=== PATIENT | female | born 1940 | race Caucasian/White ===

== ENCOUNTER 2016-04-25 12:40 | Inpatient (IN) | payer BC, MEDICARE ==
[2016-04-25] MEDS ORDERED: Morphine INJ* 4 MG/ML 1 ML SYRINGE IV ONE ×2 (13:30→15:39)
[2016-04-25] MEDS: NS 0.9% 1000 ML* 1,000 ML IV SCH ×2 (13:53→17:12)
[2016-04-25] MEDS ORDERED: Morphine INJ* 10 MG/ML 1 ML SYRINGE IV ONE (14:06)
[2016-04-25] MEDS ORDERED: Midazolam* 1 MG/ML 2 ML VIAL (2 MG) ONE (16:29)
[2016-04-25] MEDS ORDERED: fentaNYL* 50 MCG/ML 2 ML VIAL (100 MCG VIAL) ONE ×3 (16:29→17:10)
--- NOTE | 2016-04-25 16:43 | RAD ---
INDICATION: Left hip dislocation COMPARISON: Similar radiograph dated February 27, 2016 TECHNIQUE: 3 views of the left hip were obtained. FINDINGS: The right hip prosthesis is anatomically aligned. The femoral head component of the left hip prosthesis is displaced superiorly and posteriorly relative to the acetabular component. There is no evidence of periprostatic fracture. Remaining visualized bones are intact and properly aligned. IMPRESSION: Displacement of the left hip prosthesis as described above.
[2016-04-25] MEDS ORDERED: HYDROmorphone PCA* 20 ML ONE (16:48)
[2016-04-25] MEDS ORDERED: PROCHLORPERAZINE INJ 5 MG/ML 2 ML VIAL IV PRN (16:55)
[2016-04-25] MEDS ORDERED: Ondansetron INJ* 2 MG/ML VIAL IV PRN (16:55)
[2016-04-25] MEDS ORDERED: DiMENhydriNATE IV* 50 MG/ML VIAL IV PUSH PRN (16:55)
[2016-04-25] MEDS ORDERED: oxyCODONE TAB* 5 MG TAB PO PRN (16:59)
[2016-04-25] MEDS ORDERED: Ketorolac INJ* 30 MG/ML 1 ML VIAL ONE (17:00)
[2016-04-25] MEDS ORDERED: Propofol* 10 MG/ML 20 ML BTL IV PUSH ONE (17:00)
[2016-04-25] MEDS ORDERED: HYDROmorphone PCA* 20 ML PCA SCH (17:00)
[2016-04-25] MEDS ORDERED: Ondansetron INJ* 2 MG/ML VIAL ONE (17:00)
[2016-04-25] MEDS ORDERED: Lidocaine 2% MPF* 2 ML VIAL ONE (17:00)
[2016-04-25] MEDS ORDERED: Succinylcholine* 20 MG/ML 10 ML VIAL ONE (17:00)
[2016-04-25] MEDS ORDERED: Dexamethasone IV* 4 MG/ML 1 ML (4 MG) ONE (17:00)
[2016-04-25] MEDS: fentaNYL* 50 MCG/ML 2 ML VIAL (100 MCG VIAL) IV PRN ×2 (17:11→17:25)
--- NOTE | 2016-04-25 17:24 | RAD ---
INDICATION: Dislocation of the left hip prosthesis COMPARISON: Same day radiograph that shows a dislocated left hip prosthesis TECHNIQUE: Single AP radiograph of the left hip was acquired in the operating room. FINDINGS: In the AP projection the femoral head prosthesis remains dislocated superiorly and laterally relative to the acetabulum. IMPRESSION: Persistent left hip prosthesis dislocation.
[2016-04-25] MEDS ORDERED: HYDROmorphone* 1 MG/ML 1 ML SYR ONE (17:29)
[2016-04-25] MEDS: HYDROmorphone* 1 MG/ML 1 ML SYR IV PRN ×2 (17:31→17:38)
[2016-04-25] MEDS ORDERED: Magnesium Hydroxide LIQ* 30 ML UDC PO PRN (18:30)
[2016-04-25 19:06] LABS: Hematocrit 41 % (35-47); Hemoglobin 13.7 g/dl (12.0-16.0); Mean Corpuscular HGB Conc 34 g/dl (31-36); Mean Corpuscular Hemoglobin 31 pg (27-31); Mean Corpuscular Volume 92 fL (80-97); Mean Platelet Volume 8 um3 (7.4-10.4); Red Blood Count 4.42 10^6/ul (4.0-5.4); Red Cell Distribution Width 13 % (10.5-15); White Blood Count 10.3 10^3/ul (3.5-10.8)
[2016-04-25] MEDS: Acetaminophen TAB* 325 MG PO SCH (19:15)
[2016-04-25 19:24] LABS: BUN/Creatinine Ratio 35.4 (8-20); C Reactive Protein 2.26 mg/L (< 5.00); Calcium 8.8 mg/dL (8.6-10.3); EGFR African American 114.9 (>60); EGFR Non-African American 89.3 (>60)
--- NOTE | 2016-04-25 20:01 | RAD ---
INDICATION: Hypertension COMPARISON: None. TECHNIQUE: Single AP portable view of the chest was obtained. FINDINGS: Image quality is compromised due to the relative inferiority of a portable chest x-ray. The heart and mediastinum exhibit normal size and contour. There is atherosclerotic calcification at the arch of the aorta. The lungs are grossly clear. There is no evidence of a large pleural effusion. Visualized bones are normal for the patient's age. IMPRESSION: No radiographic evidence for acute cardiopulmonary abnormality on this portable chest x-ray.
[2016-04-25 20:11] LABS: Erythrocyte Sed Rate 10 mm/Hr (0-40)
[2016-04-25] MEDS: Senna TAB PO SCH (20:33)
[2016-04-25] MEDS: Docusate CAP* 100 MG PO SCH (20:34)
[2016-04-25] MEDS: Ondansetron INJ* 2 MG/ML VIAL IV PRN (21:33)
[2016-04-25] MEDS: Atorvastatin* 10 MG TAB PO SCH (22:01)
[2016-04-25] MEDS: Heparin VIAL(*) 5000 UNITS/ML VIAL (FIVE THOUSAND) SUBCUT SCH (22:04)
--- NOTE | 2016-04-25 22:22 | RAD ---
INDICATION: Dislocated prosthetic left hip COMPARISON: Same day radiographs TECHNIQUE: Noncontrast CT examination of the left hip. Axial images were acquired and sagittal and coronal reformats were created and independently analyzed. FINDINGS: As was seen on the same day radiographs the femoral head prosthesis is dislocated posteriorly and superior relative to the acetabulum. The visualized bones are intact. There is no periprosthetic fracture. Grossly the surrounding soft tissues appear to be intact. IMPRESSION: Dislocated hip as described above without periprosthetic fracture.
[2016-04-26] MEDS: Acetaminophen TAB* 325 MG PO SCH ×3 (00:45→17:23)
--- NOTE | 2016-04-26 01:40 | CONS ---
CONSULTATION REPORT: DATE OF CONSULTATION: 04/25/16 ATTENDING PHYSICIAN: Skye Sue MD CHIEF COMPLAINT: Left hip pain. HISTORY OF PRESENT ILLNESS: Briefly, Stephanie is a 75-year-old female who had a left total hip replacement done by Dr. Alonso about 15 years ago. She has since done well. She started to notice left hip pain that began around 7 to 8 weeks ago. She was seen by Dr. Alonso, who said that everything looked fine. Today, she was bending over at around 10:30 this morning and she felt a pop, was unable to weight bear and presented to the ED and she was diagnosed with a dislocated periprosthetic hip. Orthopedics was then consulted. PAST MEDICAL HISTORY: Significant for high blood pressure, hyperlipidemia, and osteoarthritis. PAST SURGICAL HISTORY: Significant for right shoulder surgery, bilateral total hip replacements, bilateral cataract surgery as well as knee arthroscopy hysterectomy, and appendectomy. MEDICATIONS: Include: 1. Tylenol. 2. Celebrex. 3. Hydrochlorothiazide. 4. Tramadol. 5. Simvastatin. 6. Oxycodone. 7. Stool softener. 8. Metoprolol. ALLERGIES: HYDROCODONE and LATEX. FAMILY HISTORY: Mother is diagnosed with cancer 53 years ago. Father had a history of emphysema. SOCIAL HISTORY: She lives home with her . She used to be a home health aide. She denies tobacco and alcohol. REVIEW OF SYSTEMS: A 14-point review of systems was reviewed with the patient, significant for the above complaints. Otherwise, remainder of the systems is negative. PHYSICAL EXAMINATION: She is in no acute distress. She is well developed and well nourished. She is alert and oriented x3. Lungs are clear to auscultation bilaterally. Heart is regular rate. Examination of the left lower extremity demonstrates a well-healed incision. Her limb is internally rotated and shortened. She is able to dorsiflex and plantarflex her ankle. She is sensate to light touch about the first dorsal webspace, medial, lateral, dorsal and plantar foot, she has a 2+ PT pulse. Her calf is soft and nontender. DIAGNOSTIC STUDIES/LAB DATA: X-rays reviewed that demonstrate a dislocated left periprosthetic hip. There are no fractures that are evident. The stem appears to be well-fixed. ASSESSMENT AND PLAN: She has a dislocated hip. We will need to reduce this rather urgently. The ED is unable to do this due to sedation issues. Therefore , we will take her to the OR emergently to reduce her hip. Afterwards, she will be placed in a knee mobilizer and allowed to be weightbearing as tolerated. She will go home the same day. I will have her followup with my partner, Dr. Gaxiola, this week for possible revision options. The patient verbalized understanding. Risks and benefits of surgery were discussed at length including, but not limited to bleeding, infection, damage to nerve vessel , surrounding structures, the fracture as well as if the hip not able to go back in as well as risk of anesthesia. We will take care of this today. CC: PCP, Ruthann Linares MD* [id number]/[facility] #: [id number] RADHA
--- NOTE | 2016-04-26 02:46 | CONS ---
CONSULTATION REPORT: DATE OF CONSULT: 04/25/16 PRIMARY CARE PROVIDER: Dr. Linares. MY ATTENDING PHYSICIAN WHILE IN THE HOSPITAL: Dr. Donovan Viveros (report dictated by Perico Reed NP) REQUESTING PHYSICIAN FOR CONSULTATION: Skye Sue MD REASON FOR MEDICAL CONSULTATION: 1. Perioperative risk stratification. 2. Medical management of comorbid medical management. HISTORY OF PRESENT ILLNESS: I will refer you to Dr. Sue's H and P for further details. In short, Mrs. Almaguer is a 75-year-old female patient who has a history of hypertension, arthritis, and hyperlipidemia who this morning today was bending over to pick something up. She heard a pop on her left hip and there was immediate pain. She sat down. Anytime she moved, she was having a significant amount of pain on the left hip. She denied having any chest pain. She says that she has not been feeling ill of late. She denies having any URI symptoms. She denies any nausea, vomiting, or diarrhea. Importantly, she also states that she has not been having any chest pain. She denies having any chest pain when walking up a flight of stairs or having any shortness of breath while walking up a flight of stairs and says that she remains fairly active. She was taken to the OR later this afternoon as it was ultimately found that she dislocated her hip, there were attempts at relocation. Unfortunately, they were unsuccessful and it was felt that she would probably benefit from a left total hip revision. So, the patient was admitted on orthopedic services and we were asked to evaluate and consult. She says that she has not had any shortness of breath, denies any recent fevers or any nausea or vomiting. Denies having any diarrhea or any abdominal pain. She states that the pain in her hip has been responding to narcotics, but this has been short-lived and that he is ready for this hip to be replaced. Because of his comorbid medical conditions, the hospitalist service was asked to evaluate the patient in consult. PAST MEDICAL HISTORY: Significant for: 1. Hypertension. 2. Hyperlipidemia. 3. Arthritis. PAST SURGICAL HISTORY: 1. She has had bilateral total hip arthroplasties. 2. Shoulder arthroscopy on the right side. 3. Hysterectomy. 4. Cataract extraction. HOME MEDICATIONS: According to the list that she gave me includes: 1. Metoprolol 25 mg p.o. daily. 2. Percocet 1 tablet daily as needed. 3. Hydrochlorothiazide 12.5 mg daily. 4. Celebrex 200 mg daily. 5. Tylenol Arthritis 1 tablet p.o. daily. 6. Tramadol 50 mg p.o. b.i.d. 7. Stool softener 1 tablet daily. 8. Simvastatin 20 mg p.o. at bedtime. ALLERGIES TO MEDICATIONS: Include HYDROCODONE and LATEX. FAMILY HISTORY: Mother had cancer. Father had COPD, both . SOCIAL HISTORY: She does not smoke, does not drink. She is with children. Surrogate decision maker is her . REVIEW OF SYSTEMS: There is no documented fever. She denied having any significant weight change. There was no double vision. There is no new discharge. There is no rhinorrhea, no sore throat, no thyroid enlargement. No thyroid enlargement. She denies having any chest pain. There is no orthopnea. No nocturnal dyspnea. There is no abdominal pain. There is no nausea, no vomiting, no dysuria, no frequency, no seizure, no loss of consciousness, no pruritus, and no skin ulceration. Review of 14 systems completed, all others negative. PHYSICAL EXAMINATION: Vital Signs: Blood pressure 149/62, pulse 85, respirations 20, O2 sat 94% on 2 L, temperature 98.6. Generally at this time, Mrs. Almaguer is a 75- year-old female patient. She is sitting in the PACU bed. She does not appear to be in any acute distress. She is well nourished and well developed. HEENT: Head: Atraumatic, normocephalic. Eyes: EOMs are intact. Sclerae anicteric and not pale. Neck: Supple. Throat: Oral mucosa appears to be moist. No oropharyngeal erythema. Heart: Sounds S1, S2. Regular rate and rhythm. No murmurs, rubs, or gallops. Lungs: Clear to auscultation bilaterally. No wheezes, rales, or rhonchi. Abdomen: Soft, flat , nontender, bowel sounds present. Extremities: Pulses 2+ throughout. Distal CSM checks are intact to the left lower extremity. She is unable to move this extremity given that this location. Skin intact. DIAGNOSTIC STUDIES/LAB DATA: Labs are pending for today. Most recent labs from June of 2015 revealed WBC of 4.9, RBC of 4.69, hemoglobin 14.5, hematocrit of 44, platelet count of 206. Sodium 138, potassium 4.6, chloride 104, bicarbonate 30, BUN 20, creatinine 0.79, AST 17, ALT 14. She had an EKG obtained today, which revealed normal sinus rhythm with a left axis. No ST elevations or T-wave inversions were noted. It was reviewed to the previous EKG , it appears to be similar. She had a hip pelvis x-ray obtained, which showed displacement of the left hip prosthesis. Repeat imaging after relocation attempts revealed persistent left hip prosthesis dislocation. Old medical records reviewed. ASSESSMENT AND PLAN: Mrs. Almaguer is a 75-year-old female patient coming into the ER today admitted under orthopedic services for a dislocated left hip. Hospitalist service was asked to evaluate and consult. Recommendations at this point are: 1. Left hip dislocation. I would defer the management of this to Dr. Sue and her team in terms to the proposed surgery. I would like to get a chest x- ray. The EKG appears to be stable. She does appear to be fairly active. She has had no chest discomfort. Her RCRI is 0. My plan at this point will be to check a chest x- ray. If it is stable, then she can proceed to the operating room. She is at low risk. I would recommend continuing her beta-long. For the time being, I do recommend getting a CBC, BMP and an INR which have already been ordered by Dr. Sue for the night and I will continue to follow up her. 2. Hypertension. She is on hydrochlorothiazide and metoprolol. I am going to stop the hydrochlorothiazide in the perioperative setting and put her on Norvasc with the metoprolol. Blood pressures are in the 160 to 150 range. Most recently 149/62, but we will follow this while she is here. 3. Hyperlipidemia. Continue with statin therapy. 4. Arthritis. Defer to the primary team. 5. DVT prophylaxis. I will defer to the primary team, but I do see that they did order heparin, which is appropriate. 6. Fluid, electrolytes and nutrition. I would recommend a heart healthy diet. 7. Code status: Full code. TIME SPENT: Time spent on the consult was 60 minutes, greater than half the time was spent [id number] with the patient obtaining my history and physical, other half the time spent going over the plan of care with the patient and implementing plan of care. I did discuss the plan of care with my attending, Dr. Viveros; he is in agreement. PERICO REED NP CC: Dr. Skye Sue; Dr. Linares* [id number]/[facility] #: [id number] [facility]
[2016-04-26] MEDS: NS 0.9% 1000 ML* 1,000 ML IV SCH ×2 (04:10→20:50)
[2016-04-26] MEDS: Heparin VIAL(*) 5000 UNITS/ML VIAL (FIVE THOUSAND) SUBCUT SCH ×3 (06:23→21:24)
[2016-04-26 06:52] LABS: Hematocrit 39 % (35-47); Hemoglobin 13.1 g/dl (12.0-16.0); Mean Corpuscular HGB Conc 34 g/dl (31-36); Mean Corpuscular Hemoglobin 31 pg (27-31); Mean Corpuscular Volume 93 fL (80-97); Mean Platelet Volume 9 um3 (7.4-10.4); Red Cell Distribution Width 13 % (10.5-15); White Blood Count 9.8 10^3/ul (3.5-10.8)
[2016-04-26 07:06] LABS: BUN/Creatinine Ratio 38.3 (8-20); Calcium 8.7 mg/dL (8.6-10.3)
--- NOTE | 2016-04-26 09:59 | PN ---
Progress Note - Progress Note Note: POD#1 from attempted closed reduction of left hip. comfortable. pain controlled with WATER TECHNICIAN. no spasms. denies sob, fevers, chills. Temp Pulse Resp BP Pulse Ox 98.0 F 95 16 146/71 99 04/26/16 07:36 04/26/16 07:36 04/26/16 07:43 04/26/16 07:36 04/26/16 07:43 NAD. skin intact. able to dorsiflex/plantarflex ankle, flex/ext toes. SILT 1st dws, medial, lateral, dorsal, and plantarfoot. 2+ PT pulse. calf soft, nontender A/P left hip dislocated periprosthetic hip unable to close reduce discussed with Dr Alonso who will assume care tomorrow NPO after midnight analgesia, continue journeyman wireman q2 turns SCDs and heparin
[2016-04-26] MEDS: Docusate CAP* 100 MG PO SCH ×2 (10:11→20:27)
[2016-04-26] MEDS: amLODIPine TAB* 5 MG PO SCH (10:11)
[2016-04-26] MEDS: Metoprolol Succinate XL TAB* 25 MG PO SCH (10:11)
--- NOTE | 2016-04-26 15:19 | PN ---
Subjective Date of Service: 04/26/16 Interval History: Patient seen and examined at bedside. She reports adequate pain control with PACKAGE SORTER and reports using it q1 hour. She reports right sided chest tenderness and is able to palpate the area of concern. It only lasted a few seconds and "feels like indigestion." She also reports hiccoughs. She denies any other chest pain, neck pain, back pain, tingling/numbness, abdominal pain, n/v, dysuria. Family History: Unchanged from Admission Social History: Unchanged from Admission Past Medical History: Unchanged from Admission Objective Active Medications: Acetaminophen (Tylenol Tab*) 975 mg PO Q8H [facility] Last Admin: 04/26/16 10:11 Dose: 975 mg Amlodipine Besylate (Norvasc Tab*) 5 mg PO DAILY [facility] Last Admin: 04/26/16 10:11 Dose: 5 mg Atorvastatin Calcium (Lipitor*) 10 mg PO BEDTIME [facility] Last Admin: 04/25/16 22:01 Dose: 10 mg Docusate Sodium (Colace Cap*) 100 mg PO BID [facility] Last Admin: 04/26/16 10:11 Dose: 100 mg Heparin Sodium (Porcine) (Heparin Vial(*)) 5,000 units SUBCUT Q8HR [facility] Last Admin: 04/26/16 14:10 Dose: 5,000 units Sodium Chloride (Ns 0.9% 1000 Ml*) 1,000 mls @ 125 mls/hr IV PER RATE [facility] Last Admin: 04/26/16 04:10 Dose: 125 mls/hr Hydromorphone HCl (Dilaudid Saw Superintendent*) 20 mls @ 0 mls/hr PACKAGE SORTER .change Q24H [facility]; Per Protocol PRN Reason: Protocol Last Admin: 04/25/16 17:12 Dose: 0.2 mls/hr Magnesium Hydroxide (Milk Of Magnesia Liq*) 30 ml PO Q6H PRN PRN Reason: CONSTIPATION Metoprolol Succinate (Toprol Xl Tab*) 25 mg PO DAILY [facility] Last Admin: 04/26/16 10:11 Dose: 25 mg Ondansetron HCl (Zofran Inj*) 4 mg IV Q6H PRN PRN Reason: NAUSEA Last Admin: 04/25/16 21:33 Dose: 4 mg Oxycodone HCl (Roxycodone Tab*) 5 mg PO Q3H PRN PRN Reason: PAIN Oxycodone HCl (Roxycodone Tab*) 10 mg PO Q3H PRN PRN Reason: moderate pain Senna (Senokot Tab*) 2 tab PO BEDTIME [facility] Last Admin: 04/25/16 20:33 Dose: Not Given Vital Signs 04/25/16 04/25/16 04/25/16 18:43 19:12 19:33 Temperature 97.9 F 97.3 F Pulse Rate 78 80 Respiratory 16 16 16 Rate Blood Pressure 152/58 157/69 (mmHg) O2 Sat by Pulse 97 98 98 Oximetry 04/25/16 04/25/16 04/25/16 19:42 20:12 20:47 Temperature 97.6 F Pulse Rate 80 Respiratory 16 16 14 Rate Blood Pressure 151/60 (mmHg) O2 Sat by Pulse 98 99 98 Oximetry 04/25/16 04/25/16 04/25/16 21:12 22:00 22:12 Temperature Pulse Rate Respiratory 14 16 18 Rate Blood Pressure (mmHg) O2 Sat by Pulse 97 96 Oximetry 04/25/16 04/25/16 04/26/16 22:32 23:12 00:12 Temperature 97.6 F Pulse Rate 93 Respiratory 18 16 16 Rate Blood Pressure (mmHg) O2 Sat by Pulse 99 99 98 Oximetry 04/26/16 04/26/16 04/26/16 00:18 02:12 03:47 Temperature 97.5 F 97.8 F Pulse Rate 91 99 Respiratory 16 16 16 Rate Blood Pressure 152/72 115/87 (mmHg) O2 Sat by Pulse 100 99 99 Oximetry 04/26/16 04/26/16 04/26/16 04:00 06:00 06:30 Temperature Pulse Rate Respiratory 16 18 18 Rate Blood Pressure (mmHg) O2 Sat by Pulse 97 97 97 Oximetry 04/26/16 04/26/16 04/26/16 07:36 07:43 10:00 Temperature 98.0 F Pulse Rate 95 Respiratory 16 16 16 Rate Blood Pressure 146/71 (mmHg) O2 Sat by Pulse 99 99 99 Oximetry 04/26/16 04/26/16 04/26/16 12:00 12:09 14:00 Temperature 98.1 F Pulse Rate 82 Respiratory 16 16 16 Rate Blood Pressure 146/56 (mmHg) O2 Sat by Pulse 97 95 97 Oximetry Oxygen Devices in Use Now: None Appearance: Female patient, lying in bed, pleasant, in NAD Eyes: PERRLA Ears/Nose/Mouth/Throat: Clear Oropharnyx, Mucous Membranes Moist Neck: NL Appearance and Movements; NL JVP Respiratory: Symmetrical Chest Expansion and Respiratory Effort, Clear to Auscultation Cardiovascular: NL Sounds; No Murmurs; No JVD, RRR Abdominal: NL Sounds; No Tenderness; No Distention Extremities: No Edema Skin: No Rash or Ulcers Neurological: Alert and Oriented x 3 Lines/Tubes/Other Access: Clean, Dry and Intact Peripheral IV Nutrition: Taking PO's Result Diagrams: 04/26/16 06:17 04/26/16 06:17 Assess/Plan/Problems-Billing Assessment: Ms. Almaguer is a 75 yo female with a PMH of HTN, HLD, and OA who was admitted for left hip dislocation. - Patient Problems (1) Dislocation of left hip Code(s): S73.005A - UNSPECIFIED DISLOCATION OF LEFT HIP, INITIAL ENCOUNTER Comment: Management per ortho Pain management Plan for OR tomorrow (2) Chest wall pain Code(s): R07.89 - OTHER CHEST PAIN Comment: Suspect pulled muscle/costchondritis; area of complaint is tender to palpation and presentation is not consistent with cardiac pain Check EKG Continue to monitor (3) HTN (hypertension) Code(s): I10 - ESSENTIAL (PRIMARY) HYPERTENSION Comment: Borderline control. Continue amlodipine and metoprolol. Pain management (4) HLD (hyperlipidemia) Code(s): E78.5 - HYPERLIPIDEMIA, UNSPECIFIED Comment: Continue statin. (5) Arthritis Code(s): M19.90 - UNSPECIFIED OSTEOARTHRITIS, UNSPECIFIED SITE Comment: Per ortho; continue PRN analgesia and scheduled Tylenol. (6) DVT prophylaxis Comment: SQ heparin Status and Disposition: Inpatient admission. Disposition per ortho.
[2016-04-26] MEDS ORDERED: hydrALAZINE IV* 20 MG/ML VIAL IV SLOW PU PRN (16:46)
[2016-04-26] MEDS: Atorvastatin* 10 MG TAB PO SCH (20:27)
[2016-04-26] MEDS: Senna TAB PO SCH (20:27)
--- NOTE | 2016-04-26 21:28 | OP ---
DATE OF OPERATION: 04/25/16 - ROOM #341 DATE OF : 44 SURGEON: Skye Sue MD FAX MACHINE REPAIRER: No contact center assistant was available. ANESTHESIA: General, with MAC PRE-OP DIAGNOSIS: Left periprosthetic hip dislocation. POST-OP DIAGNOSIS: Left periprosthetic hip dislocation. OPERATIVE PROCEDURE: Attempted closed reduction of left total hip. ANESTHESIA: General. COMPLICATIONS: Unable to get the hip back in place. POSTOP DISPOSITION: Stable. INDICATIONS: Stephanie Almaguer is a 75-year-old female who had a previous total hip replacement done by Dr. Alonso a number of years ago. She has been having pain in her hip for the last 8 to 10 weeks. She bent over earlier today and felt the hip come out. She was unable to weight bear. She was found down for about 1 hour and then transferred to the ER where she was diagnosed with the hip dislocation. After discussion of risks and benefits of surgery, we elected to proceed with closed reduction. I did state that if she did not close, then she may need further surgery and may need an open reduction internal fixation. She has elected to proceed with surgery. DESCRIPTION OF PROCEDURE: The patient was greeted in the preoperative area by the attending surgeon. The correct extremity was marked and consent was confirmed. The patient was brought back to the operating suite where she was placed in the supine position on the operating table. She then underwent general anesthesia and monitored anesthesia care, which she tolerated without difficulty, after which, when the patient was completely asleep, surgeon stepped on top of the stretcher and with tension, pulled against her pelvis and the hip was reduced and the palpable clunk was felt that, as the leg was mobilized, it was found that it was not in fact located. A second reduction was attempted at that point. Again, it was not able to be relocated. The decision was made to abort the procedure and tell the family that she may need a bigger surgery. She was then awoken from anesthesia, transferred to the PACU in stable condition. POSTOPERATIVE PLAN: She will be on bed rest. She will be nonweightbearing. She will be given a PPI pump for pain control and I will talk to Dr. Alonso about management. [id number]/[facility] #: [id number] [facility]
[2016-04-27] MEDS: Acetaminophen TAB* 325 MG PO SCH ×3 (01:27→16:15)
[2016-04-27] MEDS: NS 0.9% 1000 ML* 1,000 ML IV SCH ×2 (04:55→18:05)
[2016-04-27] MEDS: Heparin VIAL(*) 5000 UNITS/ML VIAL (FIVE THOUSAND) SUBCUT SCH ×3 (05:06→22:02)
[2016-04-27] MEDS: Docusate CAP* 100 MG PO SCH ×2 (07:45→20:54)
[2016-04-27] MEDS: amLODIPine TAB* 5 MG PO SCH (08:06)
[2016-04-27] MEDS: Metoprolol Succinate XL TAB* 25 MG PO SCH (08:13)
--- NOTE | 2016-04-27 10:09 | PN ---
Subjective Date of Service: 04/27/16 Interval History: Patient seen and examined at bedside. She is awaiting surgery. 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 She feels better now. Denies CP, SOB, abd pain, n/v. No acute concerns. Family at bedside. Family History: Unchanged from Admission Social History: Unchanged from Admission Past Medical History: Unchanged from Admission Objective Active Medications: Acetaminophen (Tylenol Tab*) 975 mg PO Q8H [facility] Last Admin: 04/27/16 07:45 Dose: Not Given Amlodipine Besylate (Norvasc Tab*) 5 mg PO DAILY [facility] Last Admin: 04/27/16 08:06 Dose: Not Given Atorvastatin Calcium (Lipitor*) 10 mg PO BEDTIME [facility] Last Admin: 04/26/16 20:27 Dose: 10 mg Docusate Sodium (Colace Cap*) 100 mg PO BID [facility] Last Admin: 04/27/16 07:45 Dose: Not Given Heparin Sodium (Porcine) (Heparin Vial(*)) 5,000 units SUBCUT Q8HR [facility] Last Admin: 04/27/16 05:06 Dose: Not Given Hydralazine HCl (Apresoline Iv*) 5 mg IV SLOW PU Q6H PRN PRN Reason: BLOOD PRESSURE Sodium Chloride (Ns 0.9% 1000 Ml*) 1,000 mls @ 125 mls/hr IV PER RATE [facility] Last Admin: 04/27/16 04:55 Dose: 125 mls/hr Hydromorphone HCl (Dilaudid Cloud Engagement Partner*) 20 mls @ 0 mls/hr [employer]A DEVELOPER .change Q24H [facility]; Per Protocol PRN Reason: Protocol Last Admin: 04/25/16 17:12 Dose: 0.2 mls/hr Magnesium Hydroxide (Milk Of Magnesia Liq*) 30 ml PO Q6H PRN PRN Reason: CONSTIPATION Metoprolol Succinate (Toprol Xl Tab*) 25 mg PO DAILY [facility] Last Admin: 04/27/16 08:13 Dose: 25 mg Ondansetron HCl (Zofran Inj*) 4 mg IV Q6H PRN PRN Reason: NAUSEA Last Admin: 04/25/16 21:33 Dose: 4 mg Oxycodone HCl (Roxycodone Tab*) 5 mg PO Q3H PRN PRN Reason: PAIN Oxycodone HCl (Roxycodone Tab*) 10 mg PO Q3H PRN PRN Reason: moderate pain Senna (Senokot Tab*) 2 tab PO BEDTIME [facility] Last Admin: 04/26/16 20:27 Dose: 2 tab Vital Signs 04/26/16 04/26/16 04/26/16 12:00 12:09 14:00 Temperature 98.1 F Pulse Rate 82 Respiratory 16 16 16 Rate Blood Pressure 146/56 (mmHg) O2 Sat by Pulse 97 95 97 Oximetry 04/26/16 04/26/16 04/26/16 15:47 16:00 16:21 Temperature 98.0 F Pulse Rate 89 Respiratory 16 16 Rate Blood Pressure 162/68 (mmHg) O2 Sat by Pulse 98 95 95 Oximetry 04/26/16 04/26/16 04/26/16 18:00 18:53 19:08 Temperature 97.8 F Pulse Rate 89 86 Respiratory 16 16 Rate Blood Pressure 143/57 (mmHg) O2 Sat by Pulse 99 98 Oximetry 04/26/16 04/26/16 04/26/16 20:00 20:15 22:00 Temperature Pulse Rate Respiratory 16 18 18 Rate Blood Pressure (mmHg) O2 Sat by Pulse 96 99 Oximetry 04/26/16 04/27/16 04/27/16 23:39 00:00 02:00 Temperature 98.0 F Pulse Rate 85 Respiratory 16 18 18 Rate Blood Pressure 138/60 (mmHg) O2 Sat by Pulse 98 99 98 Oximetry 04/27/16 04/27/16 04/27/16 03:24 04:00 06:00 Temperature 98.4 F Pulse Rate 79 Respiratory 16 18 18 Rate Blood Pressure 138/59 (mmHg) O2 Sat by Pulse 98 98 99 Oximetry 04/27/16 04/27/16 07:26 07:52 Temperature 97.7 F Pulse Rate 88 Respiratory 16 16 Rate Blood Pressure 156/70 (mmHg) O2 Sat by Pulse 100 97 Oximetry Oxygen Devices in Use Now: None Appearance: Female patient, sitting up in bed, in NAD Eyes: PERRLA Ears/Nose/Mouth/Throat: Mucous Membranes Moist Neck: NL Appearance and Movements; NL JVP Respiratory: Symmetrical Chest Expansion and Respiratory Effort, Clear to Auscultation Cardiovascular: NL Sounds; No Murmurs; No JVD, RRR Abdominal: NL Sounds; No Tenderness; No Distention Extremities: No Edema - distal sensation and movement intact, brisk cap refill Skin: No Rash or Ulcers Neurological: Alert and Oriented x 3 Lines/Tubes/Other Access: Clean, Dry and Intact Peripheral IV Result Diagrams: 04/26/16 06:17 04/26/16 06:17 Assess/Plan/Problems-Billing Assessment: Ms. Almaguer is a 75 yo female with a PMH of HTN, HLD, and OA who was admitted for left hip dislocation. - Patient Problems (1) Dislocation of left hip Code(s): S73.005A - UNSPECIFIED DISLOCATION OF LEFT HIP, INITIAL ENCOUNTER Comment: Management per ortho, surgery today Pain management (2) Chest wall pain Code(s): R07.89 - OTHER CHEST PAIN Comment: Suspect pulled muscle/costchondritis; area of complaint was tender to palpation and is now no longer there EKG shows NSR and no significant changes (3) HTN (hypertension) Code(s): I10 - ESSENTIAL (PRIMARY) HYPERTENSION Comment: Borderline control. Continue amlodipine and metoprolol. PRN hydralazine Pain management (4) HLD (hyperlipidemia) Code(s): E78.5 - HYPERLIPIDEMIA, UNSPECIFIED Comment: Continue statin. (5) Arthritis Code(s): M19.90 - UNSPECIFIED OSTEOARTHRITIS, UNSPECIFIED SITE Comment: Per ortho; continue PRN analgesia and scheduled Tylenol. (6) DVT prophylaxis Comment: On hold for surgery; management per ortho Status and Disposition: Inpatient admission. Disposition per ortho.
[2016-04-27] MEDS ORDERED: HYDROmorphone* 1 MG/ML 1 ML SYR ONE (11:11)
[2016-04-27] MEDS ORDERED: Ondansetron INJ* 2 MG/ML VIAL ONE ×2 (11:20→13:27)
[2016-04-27] MEDS: Ondansetron INJ* 2 MG/ML VIAL IV PRN (11:21)
[2016-04-27] MEDS ORDERED: fentaNYL* 50 MCG/ML 2 ML VIAL (100 MCG VIAL) ONE (11:47)
[2016-04-27] MEDS ORDERED: ceFAZolin 2 GM PREMIX(*) 2 GM/50 ML BAG IVPB ONE (12:20)
[2016-04-27] MEDS ORDERED: Lidocaine 2% MPF* 2 ML VIAL ONE (13:27)
[2016-04-27] MEDS ORDERED: Propofol* 10 MG/ML 20 ML BTL IV PUSH ONE (13:27)
[2016-04-27] MEDS ORDERED: Succinylcholine* 20 MG/ML 10 ML VIAL ONE (13:27)
[2016-04-27] MEDS ORDERED: Dexamethasone IV* 4 MG/ML 1 ML (4 MG) ONE (13:27)
--- NOTE | 2016-04-27 14:12 | ED ---
Aly Gonsalves Adam, scribed for Reyes Infante MD on 04/25/16 at 1330 . Lower Extremity - HPI Summary HPI Summary: A 75 y/o female presents to the ED BIBA for left hip pain. Patient states that she sat down and felt a significant pop with sudden onset of pain. She denies falling or loss of consciousness. She rates the pain as 10/10 and is unable to bear weight. Patient had a hip replacement 15 years ago but has had no complications with the surgery. PMHx is positive for HTN and hyperlipidemia. - History of Current Complaint Chief Complaint: EDHipPelvisInjury Stated Complaint: LT HIP PROBLEM Time Seen by Provider: 04/25/16 13:05 Hx Obtained From: Patient Onset of Pain: Immediate Onset/Duration: Hours - 3 hours Severity Initially: Severe Severity Currently: Severe Pain Intensity: 10 Pain Scale Used: 0-10 Numeric Timing: Constant Location: Is Discrete @ - Left lateral hip Character Of Pain: Aching, Throbbing Aggravating Factor(s): Standing, Ambulation, Movement, Weight Bearing Alleviating Factor(s): Nothing Able to Bear Weight: No - Allergies/Home Medications Allergies/Adverse Reactions: Allergies Allergy/AdvReac Type Severity Reaction Status Date / Time Hydrocodone Allergy Intermediate Vomiting Verified 02/28/14 11:08 Latex Allergy Intermediate Swelling Verified 02/28/14 11:08 PMH/Surg Hx/FS Hx/Imm Hx Endocrine/Hematology History: Denies: Hx Diabetes Cardiovascular History: Reports: Hx Hypertension - ON MEDS Denies: Hx Pacemaker/ICD, Other Cardiovascular Problems/Disorders History: Denies: Hx Renal Disease, Other Problems/Disorders Musculoskeletal History: Reports: Hx Arthritis - OSTEOARTHRITIS Denies: Other Musculoskeletal History Sensory History: Reports: Hx Cataracts, Hx Contacts or Glasses - READING Denies: Hx Hearing Aid Opthamlomology History: Reports: Hx Cataracts, Hx Contacts or Glasses - READING Psychiatric History: Denies: Hx Panic Disorder - Surgical History Surgery Procedure, Year, and Place: ROTATOR CUFF RIGHT, 1999, [facility] [place]. RIGHT HIP REPLACEMENT, 2000, [facility] [place]. LEFT HIP REPLACEMENT 2004, [facility] [place]. HYSTERECTOMY, , [facility] [place]. CATARACTS BILAT. 2011, [facility] [place] Hx Anesthesia Reactions: No Infectious Disease History: No Infectious Disease History: Denies: Traveled Outside the [place] in Last 30 Days - Family History Known Family History: Negative: Other - Negative anasthesia reaction - Social History Alcohol Use: Rare Alcohol Amount: 1-2 ON OCCASION Substance Use Type: Reports: None Smoking Status (MU): Never Smoked Tobacco Review of Systems Constitutional: Negative Negative: Fever, Chills Eyes: Negative Negative: Erythema ENT: Negative Negative: Sore Throat Cardiovascular: Negative Negative: Chest Pain Respiratory: Negative Negative: Shortness Of Breath, Cough Gastrointestinal: Negative Negative: Abdominal Pain, Vomiting, Nausea Genitourinary: Negative Negative: dysuria, hematuria Positive: Arthralgia - Left lateral hip pain. Negative: Edema Skin: Negative Negative: Rash Neurological: Negative, Other - Negative: Dizziness Psychological: Normal All Other Systems Reviewed And Are Negative: Yes Physical Exam - Summary Physical Exam Summary: Constitutional: Well-developed, Well-nourished, Alert, Cooperative Skin: Warm, Dry HENT: Normocephalic; No Racoons eyes; No battles sign; No abrasion; No contusion ; No maxilla facial tenderness or instability; Dentition are smooth; No dental trauma; No trismus Eyes: EOM normal, PERRL Neck: Trachea is midline. No stridor; No JVD; No step off; No posterior cervical spine tenderness Cardio: Rhythm regular, rate normal Heart sounds normal; Intact distal pulses; The pedal pulses are 2+ and symmetric. Radial pulses are 2+ and symmetric. Pulmonary/Chest wall: Effort normal; Breath sounds normal; Equal chest rise; No flail segment; No rib tenderness; No sternal tenderness Abd: Soft, Appearance normal. No distension; No tenderness; No palpable pulsatile mass; No Cullens sign; No Grace-Turners sign Musculoskeletal: Tenderness at left lateral hip. no tenderness in ankles, shoulders, elbows and knees; No joint swelling; No vertebral body tenderness; No paraspinal tenderness; No step off or deformity of the spine; Neuro: Alert, Oriented x3, Strength 5/5 all extremities. Psych: Mood and affect Normal Vital Signs On Initial Exam: Initial Vitals Temp Pulse Resp BP Pulse Ox 98.1 F 62 18 136/56 100 04/25/16 13:03 04/25/16 13:03 04/25/16 13:03 04/25/16 13:03 04/25/16 13:03 Diagnostics - Vital Signs Vital Signs Temp Pulse Resp BP Pulse Ox 04/25/16 13:03 98.1 F 62 18 136/56 100 - Laboratory Lab Statement: Any lab studies that have been ordered have been reviewed, and results considered in the medical decision making process. - Radiology Hip/Pelvis xray Xray Interpretation: Positive (See Comments) - Left hip dislocation Radiology Interpretation Completed By: ED Physician Lower Extremity Course/Dx - Diagnoses Provider Diagnoses: Hip dislocation, left - Physician Notifications Discussed Care of Patient With: Dr. Sue (Ortho, 15:20) - Will take patient to surgery under sedation Discharge - Discharge Plan Condition: Stable Disposition: ADMITTED TO [facility] The documentation as recorded by the Aly collado Adam accurately reflects the service I personally performed and the decisions made by , Reyes Infante MD.
[2016-04-27] MEDS: Atorvastatin* 10 MG TAB PO SCH (20:54)
[2016-04-27] MEDS: Senna TAB PO SCH (20:54)
[2016-04-28] MEDS: Acetaminophen TAB* 325 MG PO SCH ×3 (00:54→16:28)
--- NOTE | 2016-04-28 02:03 | OP ---
DATE OF OPERATION: 04/27/16 - ROOM #341 DATE OF : 44 - AGE: 75 SURGEON: Dr. Alonso. AGRICULTURAL SCIENTIST: HALIE Heredia ANESTHESIOLOGIST: Dr. Sharri Richardson. ANESTHESIA: General endotracheal tube. PRE-OP DIAGNOSIS: Dislocated left total hip replacement. POST-OP DIAGNOSIS: Dislocated left total hip replacement. OPERATIVE PROCEDURE: Close manipulative reduction of the left total hip replacement under fluoroscopic control. COMPLICATIONS: There were no complications. DRAINS: There were no drains. ESTIMATED BLOOD LOSS: No blood loss. CONDITION: Stable to the recovery room. INDICATIONS: Dislocated hip replacement. DESCRIPTION OF PROCEDURE: The patient was brought to the operating room and placed on a fluoroscopic type table in the supine position after the administration of general anesthetic and we did our universal protocol time-out confirming Stephanie Almaguer and the plan for close reduction of her left hip. We all agreed. The left lower extremity was placed in internal rotation and the knee was placed on longitudinal traction and tractions that went towards the sealing to encourage the femoral head that was displaced posteriorly and superiorly to come once again anteriorly and distally. Once this position was obtained, then the hip was extended and the leg was externally rotated and it was at this point that several clunks were felt and the hip was in position on fluoroscopic control. I then maneuvered the hip into 70 to 80 degrees of flexion with external rotation and it seemed stable there and I did not internally rotate the hip but put it back into extension with external rotation of the leg and it seemed stable without having to keep on to force on the leg. The patient was carefully maneuvered into the hospital bed. We put her into an abduction pillow and I will plan to keep her in the abduction pillow over night and then make a decision regarding more mobilization on 04/28/16. Procedure well tolerated. [id number]/[facility] #: [id number] MTDReena
[2016-04-28] MEDS: NS 0.9% 1000 ML* 1,000 ML IV SCH (02:41)
[2016-04-28] MEDS: Heparin VIAL(*) 5000 UNITS/ML VIAL (FIVE THOUSAND) SUBCUT SCH ×3 (05:48→21:08)
[2016-04-28] MEDS: amLODIPine TAB* 5 MG PO SCH (08:30)
[2016-04-28] MEDS: Docusate CAP* 100 MG PO SCH ×2 (08:30→21:08)
[2016-04-28] MEDS: Metoprolol Succinate XL TAB* 25 MG PO SCH (08:30)
[2016-04-28] MEDS: oxyCODONE TAB* 5 MG TAB PO PRN ×3 (08:30→21:06)
--- NOTE | 2016-04-28 08:55 | RAD ---
INDICATION: Left hip prosthesis dislocation, closed reduction. COMPARISON: Comparison is made with a prior x-ray and CT study of the left hip from April 25, 2016. TECHNIQUE: 9 of intermitted fluoroscopic were provided and AP views of the left hip were obtained. FINDINGS: The patient is status post total left hip replacement surgery. The bones and prostheses are in normal alignment. There has been interval reduction of the previously noted posterior dislocation of the femoral head prostheses. IMPRESSION: INTRAOPERATIVE CONTROL FILMS. CPT II Codes: 6045F
--- NOTE | 2016-04-28 12:56 | PN ---
Subjective Date of Service: 04/28/16 Interval History: Patient seen and examined at bedside. She is OOB to chair and reports "feeling good." She reports good pain control, denies fever/chills, CP, SOB, abd pain, n/ v. Tolerating PO intake. No nursing concerns expressed. Family History: Unchanged from Admission Social History: Unchanged from Admission Past Medical History: Unchanged from Admission Objective Active Medications: Acetaminophen (Tylenol Tab*) 975 mg PO Q8H [facility] Last Admin: 04/28/16 08:30 Dose: 975 mg Amlodipine Besylate (Norvasc Tab*) 5 mg PO DAILY [facility] Last Admin: 04/28/16 08:30 Dose: 5 mg Atorvastatin Calcium (Lipitor*) 10 mg PO BEDTIME [facility] Last Admin: 04/27/16 20:54 Dose: 10 mg Docusate Sodium (Colace Cap*) 100 mg PO BID [facility] Last Admin: 04/28/16 08:30 Dose: 100 mg Heparin Sodium (Porcine) (Heparin Vial(*)) 5,000 units SUBCUT Q8HR [facility] Last Admin: 04/28/16 05:48 Dose: 5,000 units Hydralazine HCl (Apresoline Iv*) 5 mg IV SLOW PU Q6H PRN PRN Reason: BLOOD PRESSURE Magnesium Hydroxide (Milk Of Magnesia Liq*) 30 ml PO Q6H PRN PRN Reason: CONSTIPATION Metoprolol Succinate (Toprol Xl Tab*) 25 mg PO DAILY [facility] Last Admin: 04/28/16 08:30 Dose: 25 mg Ondansetron HCl (Zofran Inj*) 4 mg IV Q6H PRN PRN Reason: NAUSEA Last Admin: 04/27/16 11:21 Dose: 4 mg Oxycodone HCl (Roxycodone Tab*) 5 mg PO Q3H PRN PRN Reason: PAIN Oxycodone HCl (Roxycodone Tab*) 10 mg PO Q3H PRN PRN Reason: moderate pain Last Admin: 04/28/16 08:30 Dose: 10 mg Senna (Senokot Tab*) 2 tab PO BEDTIME [facility] Last Admin: 04/27/16 20:54 Dose: 2 tab Vital Signs 04/27/16 04/27/16 04/27/16 13:30 13:35 13:40 Temperature 99.1 F Pulse Rate 98 94 91 Respiratory 18 18 18 Rate Blood Pressure 154/76 155/67 140/75 (mmHg) O2 Sat by Pulse 97 97 97 Oximetry 04/27/16 04/27/16 04/27/16 13:45 14:00 14:14 Temperature Pulse Rate 93 94 88 Respiratory 18 18 18 Rate Blood Pressure 145/69 144/67 138/78 (mmHg) O2 Sat by Pulse 97 97 98 Oximetry 04/27/16 04/27/16 04/27/16 14:30 15:04 15:51 Temperature 97.9 F 98.7 F Pulse Rate 90 86 91 Respiratory 18 20 16 Rate Blood Pressure 134/93 152/71 151/65 (mmHg) O2 Sat by Pulse 98 97 94 Oximetry 04/27/16 04/27/16 04/27/16 16:00 16:54 18:00 Temperature 98.3 F Pulse Rate 88 Respiratory 16 20 16 Rate Blood Pressure 147/59 (mmHg) O2 Sat by Pulse 96 93 98 Oximetry 04/27/16 04/27/16 04/27/16 18:40 18:47 19:45 Temperature 98.2 F 97.3 F Pulse Rate 92 95 Respiratory 16 16 18 Rate Blood Pressure 139/56 141/53 (mmHg) O2 Sat by Pulse 96 96 99 Oximetry 04/27/16 04/27/16 04/27/16 20:00 22:00 23:26 Temperature 97.7 F Pulse Rate 81 Respiratory 18 18 16 Rate Blood Pressure 141/62 (mmHg) O2 Sat by Pulse 98 98 100 Oximetry 04/28/16 04/28/16 04/28/16 00:00 01:07 02:00 Temperature Pulse Rate Respiratory 18 18 Rate Blood Pressure (mmHg) O2 Sat by Pulse 98 97 98 Oximetry 04/28/16 04/28/16 04/28/16 03:28 04:00 05:44 Temperature 97.6 F Pulse Rate 76 Respiratory 16 18 18 Rate Blood Pressure 130/66 (mmHg) O2 Sat by Pulse 99 99 98 Oximetry 04/28/16 04/28/16 04/28/16 06:50 07:38 08:20 Temperature 98.1 F Pulse Rate 84 Respiratory 18 17 Rate Blood Pressure 171/75 (mmHg) O2 Sat by Pulse 100 99 98 Oximetry 04/28/16 08:30 Temperature Pulse Rate Respiratory 16 Rate Blood Pressure (mmHg) O2 Sat by Pulse Oximetry Oxygen Devices in Use Now: None Appearance: Female patient, OOB to chair, in NAD Eyes: PERRLA Ears/Nose/Mouth/Throat: Clear Oropharnyx, Mucous Membranes Moist Neck: NL Appearance and Movements; NL JVP Respiratory: Symmetrical Chest Expansion and Respiratory Effort, Clear to Auscultation Cardiovascular: NL Sounds; No Murmurs; No JVD, RRR Abdominal: NL Sounds; No Tenderness; No Distention Extremities: No Edema Skin: No Rash or Ulcers Neurological: Alert and Oriented x 3 Lines/Tubes/Other Access: Clean, Dry and Intact Peripheral IV Nutrition: Taking PO's Result Diagrams: 04/26/16 06:17 04/26/16 06:17 Assess/Plan/Problems-Billing Assessment: Ms. Almaguer is a 75 yo female with a PMH of HTN, HLD, and OA who was admitted for left hip dislocation. - Patient Problems (1) Dislocation of left hip Code(s): S73.005A - UNSPECIFIED DISLOCATION OF LEFT HIP, INITIAL ENCOUNTER Comment: POD#1 s/p closed reduction of the left hip Management per ortho, patient ordered OOB to chair PT eval Pain management (2) HTN (hypertension) Code(s): I10 - ESSENTIAL (PRIMARY) HYPERTENSION Comment: Still hypertensive. Continue amlodipine 10 mg and metoprolol. Patient should resume HCTZ upon discharge. PRN hydralazine Pain management (3) HLD (hyperlipidemia) Code(s): E78.5 - HYPERLIPIDEMIA, UNSPECIFIED Comment: Continue statin. (4) Arthritis Code(s): M19.90 - UNSPECIFIED OSTEOARTHRITIS, UNSPECIFIED SITE Comment: Per ortho; continue PRN analgesia and scheduled Tylenol. (5) DVT prophylaxis Comment: SQ heparin Status and Disposition: Inpatient admission. Disposition per ortho.
[2016-04-28] MEDS: Atorvastatin* 10 MG TAB PO SCH (21:07)
[2016-04-28] MEDS: Senna TAB PO SCH (21:07)
[2016-04-29] MEDS: Acetaminophen TAB* 325 MG PO SCH ×2 (00:33→08:47)
[2016-04-29] MEDS: Heparin VIAL(*) 5000 UNITS/ML VIAL (FIVE THOUSAND) SUBCUT SCH (06:20)
[2016-04-29 08:04] VITALS: BP 165/72
[2016-04-29] MEDS: Metoprolol Succinate XL TAB* 25 MG PO SCH (08:47)
[2016-04-29] MEDS: Docusate CAP* 100 MG PO SCH (08:47)
[2016-04-29] MEDS ORDERED: amLODIPine TAB* 5 MG PO SCH (09:00)
== END 2016-04-29 11:15 | disposition home or self-care (01) | DRG 349 ==
LOC: ED 12:40 → OR 16:41 → SSU 18:30
PROVIDERS: ADMIT Orthopaedic Surgery; ATTEND Orthopaedic Surgery
PROC: 0SWBXJZ Revision of Synthetic Substitute in Left Hip Joint, External Approach (ICD-10-PCS; 2016-04-25)
PROC: 0SWBXJZ Revision of Synthetic Substitute in Left Hip Joint, External Approach (ICD-10-PCS; principal; 2016-04-27 11:00)
DX: T84.021A Dislocation of internal left hip prosthesis, initial encounter (principal); I10 Essential (primary) hypertension; E78.5 Hyperlipidemia, unspecified; M19.90 Unspecified osteoarthritis, unspecified site; Z96.643 Presence of artificial hip joint, bilateral; R07.89 Other chest pain; Z88.5 Allergy status to narcotic agent; Z91.040 Latex allergy status; Z98.42 Cataract extraction status, left eye; Z98.41 Cataract extraction status, right eye; Z90.710 Acquired absence of both cervix and uterus; Z72.89 Other problems related to lifestyle; Z80.9 Family history of malignant neoplasm, unspecified; Z82.5 Family history of asthma and other chronic lower respiratory diseases; Y79.2 Prosthetic and other implants, materials and accessory orthopedic devices associated with adverse incidents; Y92.9 Unspecified place or not applicable
CPT/HCPCS: 36415; 71010; 80048; 85025; 85610; 85652; 86140; 93005; 94760; 99282; A9270-GY; J0330; J0690; J1100; J1170; J1644; J1885; J2250; J2270; J2405; J2704; J3010

== ENCOUNTER 2018-08-29 08:37 | Day surgery (SDC) | payer MEDICARE ==
--- NOTE | 2018-08-24 10:52 | HP ---
PREOPERATIVE HISTORY AND PHYSICAL: DATE OF ADMISSION/SURGERY: 08/29/18 [facility] DATE OF OFFICE VISIT/ENCOUNTER: 08/16/18 ATTENDING SURGEON: Carrie Rabago MD * (DICTATED BY HALIE OBANDO) PROCEDURE: Right wrist carpal tunnel release, right ulnar nerve decompression at the elbow. HISTORY OF PRESENT ILLNESS: This is a 78-year-old female, who complains of numbness and tingling in her right hand involving all of her fingers. She has had trouble for several months and it is gradually getting worse. She has trouble with her neck as well and has a mass in her neck. She is going to have surgery with Dr. Denise in about a month. As far as her arm is concerned, she has no injury that she recalls. She had a nerve conduction study, which showed carpal tunnel syndrome on the right as well as an ulnar neuropathy of the elbow on the right. These studies were done by Dr. Helms. He did not find any radiculopathy. The patient would like to proceed with surgical intervention for the carpal tunnel syndrome and ulnar neuropathy at the elbow. She has chronic neck pain and is prescribed Percocet by her primary care nurse practitioner, Tyshawn Sosa. PAST MEDICAL HISTORY: 1. Chronic neck pain/mass. 2. Hypertension. 3. Arthritis. 4. Hypercholesterolemia. PAST SURGICAL HISTORY: 1. Right shoulder acromioplasty. 2. Bilateral total hip arthroplasties with revision on the left. 3. Bilateral cataract removal. 4. Left leg biopsy. 5. Knee arthroscopy in 2013. CURRENT MEDICATIONS: 1. Celebrex 200 mg daily. 2. Gabapentin 300 mg daily. 3. Hydrochlorothiazide 12.5 mg daily. 4. Metoprolol succinate ER 25 mg daily. 5. Mirtazapine 15 mg daily. 6. Percocet 5/325 one tab q.4-6 hours p.r.n. pain. 7. Simvastatin 20 mg daily. 8. Stool softener 1 daily. ALLERGIES: CITALOPRAM and HYDROCODONE cause nausea and swelling, LATEX causes skin irritation. FAMILY MEDICAL HISTORY: Gastric cancer. SOCIAL HISTORY: The patient is retired. She denies tobacco use and recreational drug use. She drinks alcohol on rare occasion. REVIEW OF SYSTEMS: Negative for general, cephalic, cardiovascular, respiratory , GI and . Positive for nocturia. Musculoskeletal is negative except for current complaint. Negative integumentary, endocrine, neurologic, and hematologic symptoms. Infectious Disease: Negative for MRSA, hepatitis C, HIV. PHYSICAL EXAMINATION GENERAL: A well-developed, well-nourished 78-year-old female, in no acute distress. VITAL SIGNS: Height 5 feet 1-1/2 inches, weight 164 pounds. Pulse rate 86, blood pressure 162/74. HEENT: Normocephalic, atraumatic. Pupils are equal, round, and reactive to light and accommodation. Extraocular movements are intact. Throat is clear. NECK: Supple. No palpable lymph nodes. PULMONARY: Lungs are clear to auscultation bilaterally. No wheezes, rales, or rhonchi. CARDIOVASCULAR: Regular rate and rhythm. S1, S2. No murmurs, rubs, or gallops. No edema. ABDOMEN: Positive bowel sounds. Soft, nontender. NEUROLOGICAL: Alert and oriented x3. Cranial nerves II through XII are intact. MUSCULOSKELETAL: On exam of her right upper extremity, she has decreased sensation in all of the fingers of her right hand. She has a positive Tinel's sign at the median nerve of the wrist as well as at the ulnar nerve of the elbow. She does not have any thenar wasting, but has weakness with some abduction. She also has weakness with finger abduction. Her neck motion is very limited. DIAGNOSTIC STUDIES/LAB DATA: EMG nerve conduction study shows right carpal tunnel syndrome and ulnar neuropathy at the elbow. IMPRESSION: Right carpal tunnel syndrome and ulnar neuropathy at the elbow. PLAN: The patient is scheduled to undergo a right wrist carpal tunnel release and a right ulnar nerve decompression at the elbow with Dr. Rabago on 08/29/18. She will return to the office 10 days postop for followup and suture removal. She will use Percocet for postoperative pain management and we will coordinate prescribing this with her primary care doctor. HALIE OBANDO [id number]/[facility] #: [id number] MTDD
[~2018-08-29 08:37] MED LIST: Buffered Lidocaine 1% SYRIN* 1 ML/SYRINGE INTRADERM ONE; Lactated Ringers 1000 ML Bag* 1,000 ML IV SCH; Lidocaine 1% INJ* 10 MG/ML 30 ML SDV ONE
[2018-08-29] MEDS ORDERED: ceFAZolin 2 GM PREMIX in ORs 2 GM/50 ML BAG IVPB ONE (08:45)
[2018-08-29] MEDS ORDERED: Midazolam* 1 MG/ML 5 ML VIAL (5 MG) ONE (10:48)
[2018-08-29] MEDS ORDERED: fentaNYL* 50 MCG/ML 2 ML VIAL (100 MCG VIAL) ONE (11:28)
[2018-08-29] MEDS ORDERED: Naloxone* 0.4 MG/ML 1 ML VIAL IV PRN (11:39)
[2018-08-29] MEDS ORDERED: Ondansetron INJ* 2 MG/ML VIAL IV PRN (11:39)
[2018-08-29] MEDS ORDERED: Acetaminophen TAB* 325 MG PO PRN (11:39)
[2018-08-29] MEDS ORDERED: fentaNYL* 50 MCG/ML 2 ML VIAL (100 MCG VIAL) IV PRN (11:39)
[2018-08-29] MEDS ORDERED: oxyCODONE/Acetamin 5/325 MG* TAB PO PRN (11:39)
[2018-08-29] MEDS ORDERED: Ibuprofen TAB* 400 MG PO PRN (11:39)
[2018-08-29] MEDS ORDERED: Propofol* 10 MG/ML 20 ML BTL ONE (11:44)
[2018-08-29 12:05] VITALS: BP 149/78
--- NOTE | 2018-08-29 20:30 | OP ---
DATE OF OPERATION: 08/29/18 [facility] DATE OF : 44 SURGEON: Dr. Rabago. ASSISTANTS: HALIE Salgado, and HALIE Todd. ANESTHESIA: Local MAC. PRE-OP DIAGNOSES: Right carpal tunnel syndrome and ulnar nerve compression at the right elbow. POST-OP DIAGNOSES: Right carpal tunnel syndrome and ulnar nerve compression at the right elbow. OPERATIVE PROCEDURES: Ulnar nerve decompression of the right elbow and right carpal tunnel release. ESTIMATED BLOOD LOSS: Zero. TOURNIQUET TIME: Approximately 35 minutes. INDICATIONS FOR PROCEDURE: Stephanie is a 78-year-old female who has numbness and tingling in her right hand. Nerve conduction studies consistent with ulnar nerve compression at the right elbow and median nerve compression of the right wrist. She presents for decompression of both nerves. DESCRIPTION OF PROCEDURE: The patient was brought to the operating room and was given a sedation anesthetic and a local infiltration of 20 cc of 1% plain lidocaine at the right elbow medial side and 10 cc of 1% plain lidocaine in the palm of her right hand. The skin of her right hand and forearm was prepped and draped in the usual sterile fashion. The hand and forearm were exsanguinated and the tourniquet elevated to 250 mmHg. A longitudinal incision was made in the palm in line with the ring finger. We dissected through the subcutaneous tissue and down to the transverse carpal ligament. The ligament was divided sharply with a knife and then more proximally with the scissors. The nerve was dissected free from the surrounding tissue and there was an area of marked compression at the midportion of the ligament. The wound was irrigated and the skin edges reapproximated with 4-0 nylon suture. Next, a curvilinear incision was made centered between the medial epicondyle and the tip of the olecranon process. We dissected through the subcutaneous tissue down to the ulnar nerve proximal to the joint and then traced the nerve through the cubital tunnel. The patient had an anconeus epitrochlearis muscle in her cubital tunnel which was compressing her nerve. The nerve was then traced out proximally for several centimeters and then traced into the FCU fascia. Both the superficial and deep fascia of the FCU muscle was divided. The medial intermuscular septum was then divided as well and the nerve was completely released. The area of maximum compression was in the cubital tunnel. Subcutaneous tissue was closed with 3-0 Polysorb suture and the skin edges were reapproximated with skin lydia. The wounds were dressed with Xeroform, 4x4, Webril, and an Marquise wrap. The patient tolerated the procedure well and was brought to the recovery room in good condition. [id number]/CPS #: [id number] MTDD
== END 2018-08-29 12:25 | disposition home or self-care (01) ==
LOC: OREAST 08:37
PROVIDERS: ATTEND Orthopaedic Surgery
DX: G56.01 Carpal tunnel syndrome, right upper limb (principal); G56.21 Lesion of ulnar nerve, right upper limb; I10 Essential (primary) hypertension; M19.90 Unspecified osteoarthritis, unspecified site; E78.00 Pure hypercholesterolemia, unspecified; M54.2 Cervicalgia
CPT/HCPCS: J0690; J2250; J2704; J3010

== ENCOUNTER 2018-09-14 05:48 | Inpatient (IN) | payer MEDICARE ==
[~2018-09-14 05:48] MED LIST changes: -Lactated Ringers 1000 ML Bag* 1,000 ML IV SCH; -Lidocaine 1% INJ* 10 MG/ML 30 ML SDV ONE; +Ondansetron TAB* 4 MG PO ONE
[2018-09-14] MEDS ORDERED: Naloxone* 0.4 MG/ML 1 ML VIAL IV PRN (05:54)
[2018-09-14] MEDS ORDERED: PROCHLORPERAZINE INJ 5 MG/ML 2 ML VIAL IV PRN (05:54)
[2018-09-14] MEDS ORDERED: Scopolamine 1.5 mg* PATCH TRANSDERM PRN (05:54)
[2018-09-14] MEDS ORDERED: DiMENhydriNATE IV* 50 MG/ML VIAL IV PUSH PRN (05:54)
[2018-09-14] MEDS ORDERED: fentaNYL* 50 MCG/ML 2 ML VIAL (100 MCG VIAL) IV PRN (05:54)
[2018-09-14] MEDS ORDERED: Lactated Ringers 1000 ML Bag* 1,000 ML IV SCH ×2 (06:00→17:00)
[2018-09-14] MEDS ORDERED: Famotidine IV* 10 MG/ML 2 ML (20 mg) IV ONE (06:00)
[2018-09-14] MEDS ORDERED: Dexamethasone TAB* 4 MG PO ONE (06:00)
[2018-09-14] MEDS ORDERED: Famotidine IV* 10 MG/ML 2 ML (20 mg) ONE (06:39)
[2018-09-14] MEDS ORDERED: ceFAZolin 2 GM PREMIX in ORs 2 GM/50 ML BAG IVPB ONE (06:39)
[2018-09-14] MEDS ORDERED: Buffered Lidocaine 1% SYRIN* 1 ML/SYRINGE INTRADERM ONE (06:39)
[2018-09-14] MEDS ORDERED: Dexamethasone TAB* 4 MG ONE (06:39)
[2018-09-14] MEDS ORDERED: Ondansetron ODT TAB* 4 MG ONE (06:39)
[2018-09-14] MEDS ORDERED: Bacitracin INJECTION* 50,000 UNITS ONE ×3 (06:44→15:43)
[2018-09-14] MEDS ORDERED: Thrombin 5,000 UNITS* 1 APPLIC KIT - topical use - TOPICAL ONE (06:44)
[2018-09-14] MEDS ORDERED: Lidocain 1% EPI 1:100,000 * 30 ML MDV ONE (06:44)
[2018-09-14] MEDS ORDERED: Lidocaine 1% MPF wEPI 200,000* 30 ML SDV ONE (06:45)
[2018-09-14] MEDS ORDERED: fentaNYL* 50 MCG/ML 5 ML VIAL (250 MCG VIAL) ONE ×3 (07:16→08:56)
[2018-09-14] MEDS ORDERED: Midazolam* 1 MG/ML 10 ML VIAL (10 MG) ONE (07:16)
[2018-09-14] MEDS ORDERED: KETAMINE HCL* 50 MG/ML 10 ML VIAL ONE (07:17)
[2018-09-14] MEDS ORDERED: Norepinephrine VIAL* 1 MG/ML 4 ML VIAL ONE (10:30)
[2018-09-14] MEDS ORDERED: Lidocaine 2% PF * 5 ML VIAL ONE (10:31)
[2018-09-14] MEDS ORDERED: Propofol* 10 MG/ML 20 ML BTL ONE ×2 (10:31→11:49)
[2018-09-14] MEDS ORDERED: Succinylcholine* 20 MG/ML 10 ML VIAL ONE (10:31)
[2018-09-14] MEDS ORDERED: Propofol* 1,000 MG/100 ML BTL ONE ×2 (10:31→13:42)
[2018-09-14] MEDS ORDERED: ceFAZolin VIAL(*) VIAL ONE ×2 (11:59→15:00)
[2018-09-14] MEDS: Ondansetron INJ* 2 MG/ML VIAL IV PRN ×2 (16:00→18:05)
[2018-09-14] MEDS ORDERED: Dexamethasone IV* 4 MG/ML 1 ML (4 MG) ONE (16:06)
[2018-09-14] MEDS ORDERED: Ondansetron INJ* 2 MG/ML VIAL ONE ×2 (16:20→18:02)
[2018-09-14] MEDS ORDERED: Metoprolol Tartrate IV* 1 MG/ML 5 ML VIAL ONE (16:31)
[2018-09-14] MEDS ORDERED: hydrALAZINE IV* 20 MG/ML VIAL ONE (17:35)
[2018-09-14] MEDS ORDERED: fentaNYL* 50 MCG/ML 2 ML VIAL (100 MCG VIAL) ONE (18:02)
[2018-09-14] MEDS ORDERED: Morphine 4 MG/ML VIAL (1 ml) 4 MG/ML VIAL ONE ×2 (18:02→18:27)
[2018-09-14] MEDS: Morphine 4 MG/ML VIAL (1 ml) 4 MG/ML VIAL IV PRN ×6 (18:08→22:57)
[2018-09-14] MEDS ORDERED: Metoprolol Succinate XL TAB* 25 MG PO SCH (21:00)
[2018-09-14] MEDS: Atorvastatin* 10 MG TAB PO SCH (21:46)
[2018-09-14] MEDS: Metoprolol Succinate XL TAB* 25 MG PO SCH (21:46)
[2018-09-14] MEDS: oxyCODONE/Acetamin 5/325 MG* TAB PO PRN (21:46)
[2018-09-14] MEDS: Dexamethasone TAB* 4 MG PO SCH (21:47)
[2018-09-14] MEDS: Mirtazapine TAB* 15 MG PO SCH (21:47)
--- NOTE | 2018-09-14 22:28 | CONS ---
[facility] MEDICINE CONSULTATION REPORT: DATE OF CONSULT: 09/14/18 ATTENDING PHYSICIAN: Dr. Denise. CONSULTING PHYSICIAN: Dr. Billings (dictated by Tiffany Mandujano NP). REASON FOR CONSULT: Hypertension, hyperlipidemia. HISTORY OF PRESENT ILLNESS: Ms. Almaguer is a 78-year-old female with a past medical history significant for hypertension, hyperlipidemia, and anxiety, who presented to [facility] for an elective posterior cervical decompression C2-T2 with Dr. Denise. For complete details, please see dictated H and P by Dr. Denise. In brief, the patient had pain and opted for cervical decompression with Dr. Denise. In the immediate postoperative period, the patient has no complaints. Preoperatively, she denied any fevers, chills. Denied any chest pain or edema, cough, hemoptysis, or shortness of breath. Denied any nausea, vomiting, diarrhea, abdominal pain, gross hematuria , dysuria. Denied any focal weakness or sensory loss. Denies any visual complaints or dysphagia. No arthralgias, myalgias. She denied any rashes or lesions. She denies any psychosis or anxiety. Due to her history of hypertension and hyperlipidemia, we were asked to co-manage her chronic medical conditions during her hospitalization. PAST MEDICAL HISTORY: 1. Hypertension. 2. Hyperlipidemia. 3. Anxiety. 4. Depression. PAST SURGICAL HISTORY: 1. Right hip replacement x2, left hip, right shoulder. 2. Knee arthroplasty. 3. Hysterectomy. 4. Cholecystectomy. HOME MEDICATIONS: 1. Gabapentin 300 mg p.o. h.s. 2. Mirtazapine 15 mg at bedtime. 3. Metoprolol 25 mg p.o. daily. 4. Oxycodone 5/325 one tablet p.o. q.4 hours as needed for pain. 5. Celebrex 200 mg p.o. daily. 6. Simvastatin 20 mg p.o. daily. 7. Hydrochlorothiazide 12.5 mg p.o. daily. 8. Stool softener senna 5/docusate 50/8.6 one to two tablets p.o. at bedtime. Gabapentin dose needs to be confirmed. ALLERGIES: 1. LATEX. 2. HYDROCODONE. 3. TRAMADOL. FAMILY HISTORY: Father of an LA in his 40s. He also had emphysema and was a heavy smoker. Mother of stomach cancer at a young age. SOCIAL HISTORY: The patient is . She lives with family. She denies any tobacco, alcohol, or illicit drug use. Surrogate decision maker in the event she is unable to make her own decisions is her daughter. She is a full code. REVIEW OF SYSTEMS: An 11-point review of systems was completed. All pertinent positives are mentioned in the HPI, otherwise were negative. PHYSICAL EXAM: Ms. Almaguer is a 78-year-old female. She is resting comfortably on the bed in PACU. She is in no acute distress. Vital Signs: Blood pressure 157/82, heart rate is 105, respirations are 21, O2 saturation 99%, temp was 99.5. HEENT: Head is atraumatic, normocephalic. Eyes: EOMs are intact. She does have some scleral edema noted. She does have open skin abrasions noted to bilateral cheeks and chin. M J collar is in place with OCTAVIA drain draining bloody drainage. Mucous membranes are moist and pink. Lungs are clear to auscultation bilaterally. No wheezes, rales, or rhonchi. Cardiac: S1, S2. Regular rate and rhythm. No murmurs, rubs, or gallops. Abdomen is soft and nontender. Bowel sounds are present x4. She is able to move all 4 extremities. Sensation is intact in all 4 extremities. Radial pulses are +2 bilaterally. Pedal pulses are +2 bilaterally. Neurologic: She is awake, alert , oriented x3. Speech is clear. Thought process is intact. There are no gross focal deficits. Her skin is intact. DIAGNOSTIC STUDIES/LAB DATA: On 09/07/18, WBCs were 7.0, RBCs 4.92, hemoglobin 14.9, hematocrit was 45, platelet count was 232. INR was 0.99. Sodium 139, potassium 3.9, chloride 105, carbon dioxide was 26, anion gap 8, BUN 15, creatinine 0.76, glucose 121. Calcium 10.4. Urine was within normal limits except for specific gravity of 1.004. ASSESSMENT AND PLAN: Ms. Almaguer is a 78-year-old female who presented for an elective C2-T2 cervical decompression surgery with Dr. Denise. Our recommendations are as follows: 1. Status post cervical decompression with C2-T2. Management per Neurosurgery , PT/OT per Neurosurgery, DVT prophylaxis per Neurosurgery, pain management per Neurosurgery. 2. Hypertension. I would continue her metoprolol 25 mg p.o. daily. I will hold her hydrochlorothiazide 12.5 mg p.o. daily. Continue simvastatin 20 mg p.o. daily. 3. Anxiety and depression. I would continue her mirtazapine 15 mg at bedtime as needed. 4. FEN. The patient can have a regular diet. 5. Code status. She is a full code. 6. DVT prophylaxis per Neurosurgery. TIME SPENT: Time spent on this consultation was 45 minutes, greater than half that time was spent at the bedside reviewing events leading thus far to her hospitalization, performing physical exam, and reviewing my plan of care. I have discussed this with my attending, Dr. Billings, he is in agreement with my plan. TIFFANY MANDUJANO, JAMEEL [id number]/[facility] #: [id number] RADHA
[2018-09-14] MEDS: Cyclobenzaprine TAB* 10 MG PO PRN (22:58)
[2018-09-15] MEDS ORDERED: hydrALAZINE IV* 20 MG/ML VIAL IV SLOW PU PRN (02:06)
[2018-09-15] MEDS: oxyCODONE/Acetamin 5/325 MG* TAB PO PRN ×5 (04:08→22:11)
[2018-09-15] MEDS: Dexamethasone TAB* 4 MG PO SCH ×4 (04:09→22:11)
--- NOTE | 2018-09-15 06:00 | PN ---
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 Patient appears to be doing well denies, head, nausea vomiting , also radicular and axial pain. Her vitals have been stable over night, and has put out 150 ml in OCTAVIA drain. Patient has tolerated procedure well and ihas no complaints this morning. Objective: Vital Signs - 8 hr 09/14/18 09/14/18 09/14/18 22:00 22:57 23:00 Temperature Pulse Rate 121 115 Respiratory 33 18 14 Rate Blood Pressure 154/73 139/75 (mmHg) O2 Sat by Pulse 96 94 Oximetry 09/14/18 09/15/18 09/15/18 23:29 00:00 00:01 Temperature 98.6 F Pulse Rate 113 Respiratory 12 12 Rate Blood Pressure 159/90 (mmHg) O2 Sat by Pulse 97 97 Oximetry 09/15/18 09/15/18 09/15/18 01:00 02:00 03:00 Temperature Pulse Rate 104 111 102 Respiratory 15 20 14 Rate Blood Pressure 127/68 159/80 124/62 (mmHg) O2 Sat by Pulse 93 95 93 Oximetry 09/15/18 09/15/18 09/15/18 03:51 04:00 04:08 Temperature 98.1 F Pulse Rate 102 Respiratory 16 16 Rate Blood Pressure 122/64 (mmHg) O2 Sat by Pulse 93 Oximetry 09/15/18 05:00 Temperature Pulse Rate 100 Respiratory 13 Rate Blood Pressure 118/61 (mmHg) O2 Sat by Pulse 92 Oximetry General: Patient sitting up right in bed comfortable. Neuro: GCS 15, A&O x 3 CN II - XII grossly intact, UPE motor strength 5/5, LE motor strength 5/5 sensation intact. Derm: surgical wound C/D/I, drain intact. 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 Plan: 1) D/C garcia 2) Follow up X rays 3) Olga Steroid theray 4) Work with PT/OT 5) discharge to [facility] 6) continue to monitor OCTAVIA drain out put.
[2018-09-15] MEDS: Morphine 4 MG/ML VIAL (1 ml) 4 MG/ML VIAL IV PRN (07:41)
--- NOTE | 2018-09-15 08:32 | PN ---
Subjective Date of Service: 09/15/18 Interval History: Patient seen and examined in ICU. Awake, feeling well, pain well controlled. No acute overnight events. Dr. Denise at bedside. VS stable overnight. Patient denies SOB, no fever or chills, no dysphagia, no cough, no numbness or tingling , no headache. Objective Active Medications: Atorvastatin Calcium (Lipitor*) 10 mg PO BEDTIME PUJA Last Admin: 09/14/18 21:46 Dose: 10 mg Cyclobenzaprine HCl (Flexeril Tab*) 10 mg PO TID PRN PRN Reason: muscle spasms Last Admin: 09/14/18 22:58 Dose: 10 mg Dexamethasone (Decadron Tab*) 4 mg PO Q6H PUJA Last Admin: 09/15/18 04:09 Dose: 4 mg Docusate Sodium (Colace Cap*) 100 mg PO BID PRN PRN Reason: CONSTIPATION Hydralazine HCl (Apresoline Iv*) 10 mg IV SLOW PU Q8H PRN PRN Reason: SBP>160 Lactated Ringer's (Lactated Ringers 1000 Ml Bag*) 1,000 mls @ 75 mls/hr IV .per rate PUJA Last Admin: 09/14/18 21:36 Dose: 75 mls/hr Metoprolol Succinate (Toprol Xl Tab*) 25 mg PO BEDTIME PUJA Last Admin: 09/14/18 21:46 Dose: 25 mg Mirtazapine (Remeron Tab*) 15 mg PO BEDTIME PUJA Last Admin: 09/14/18 21:47 Dose: 15 mg Morphine Sulfate (Morphine 4 Mg/Ml Vial (1 Ml)) 2 mg IV Q2H PRN PRN Reason: PAIN Last Admin: 09/15/18 07:41 Dose: 2 mg Ondansetron HCl (Zofran Inj*) 4 mg IV Q6H PRN PRN Reason: NAUSEA/VOMITING Last Admin: 09/14/18 16:00 Dose: 4 mg Oxycodone/Acetaminophen (Percocet 5/325 Tab*) 1 tab PO Q4H PRN PRN Reason: PAIN Last Admin: 09/15/18 04:08 Dose: 1 tab Senna (Senokot Tab*) 1 tab PO BEDTIME PRN PRN Reason: CONSTIPATION Vital Signs - 8 hr 09/15/18 09/15/18 09/15/18 01:00 02:00 03:00 Temperature Pulse Rate 104 111 102 Respiratory 15 20 14 Rate Blood Pressure 127/68 159/80 124/62 (mmHg) O2 Sat by Pulse 93 95 93 Oximetry 09/15/18 09/15/18 09/15/18 03:51 04:00 04:08 Temperature 98.1 F Pulse Rate 102 Respiratory 16 16 Rate Blood Pressure 122/64 (mmHg) O2 Sat by Pulse 93 Oximetry 09/15/18 09/15/18 09/15/18 05:00 06:00 07:41 Temperature Pulse Rate 100 94 Respiratory 13 18 21 Rate Blood Pressure 118/61 114/55 (mmHg) O2 Sat by Pulse 92 93 Oximetry Oxygen Devices in Use Now: Nasal Cannula Appearance: Alert, NAD Eyes: No Scleral Icterus, PERRLA Ears/Nose/Mouth/Throat: NL Teeth, Lips, Gums, Mucous Membranes Moist, - Neck: - - [place] J collar in place, posterior drain noted, dressing to chin excoriation CDI, posterior dressing CDI Respiratory: Symmetrical Chest Expansion and Respiratory Effort, Clear to Auscultation Cardiovascular: NL Sounds; No Murmurs; No JVD, RRR, No Edema Abdominal: NL Sounds; No Tenderness; No Distention Extremities: No Edema, No Clubbing, Cyanosis Skin: No Rash or Ulcers Neurological: Alert and Oriented x 3, NL Sensation, NL Muscle Strength and Tone Lines/Tubes/Other Access: Clean, Dry and Intact Garcia - clear yellow urine, Clean, Dry and Intact Other Access - OCTAVIA drain Nutrition: - - Clear liquid diet Microbiology and Other Data: Microbiology 09/15/18 06:40 Nasal Screen MRSA (PCR) - Final Nasal Mrsa Not Detected Assess/Plan/Problems-Billing Assessment: This is a 78 year old female with history of HTN that presented for elective C2- T2 decompression and fusion and excision of intradrual tumor. - Patient Problems (1) S/P cervical spinal fusion Code(s): Z98.1 - ARTHRODESIS STATUS SNOMED Code(s): 9929686330511 Comment: - POD1 C2-T2 decompression and fusion with arthrodesis and excision of intradural tumor with Dr. Denise - POC as per neurosurgery - DC garcia, ambulate, OOB to chair - Continue decadron Q6h - DC IVF at 1700 today then advance diet if OK with neurosurgery, currently on CLD - Pain control, bowel regimen - DVT prophy with SCDs - Cspine precautions with [place] J collar at all times - PT/OT - Follow AM labs (2) HTN (hypertension) Code(s): I10 - ESSENTIAL (PRIMARY) HYPERTENSION SNOMED Code(s): 81643045 Comment: - Metoprolol per home dose, hydralazine PRN (3) HLD (hyperlipidemia) Code(s): E78.5 - HYPERLIPIDEMIA, UNSPECIFIED SNOMED Code(s): 04218942 Comment: - Resume statin at discharge (4) DVT prophylaxis Code(s): VWQ5483 - SNOMED Code(s): 025813637 Comment: - SCDs (5) Full code status Code(s): Z78.9 - OTHER SPECIFIED HEALTH STATUS SNOMED Code(s): 801137490 Status and Disposition: Progressing/stable. Transfer to surgical floor.
--- NOTE | 2018-09-15 08:45 | OP ---
DATE OF OPERATION: 09/14/18 - ROOM #ICU-09 DATE OF : 44 SURGEON: Sury Denise MD. ASSISTANTS: HALIE Matute and HALIE Freed. The case was done with the assistance of surgical PA because of the complexity of the case. PRE-OP DIAGNOSES: 1. Intradural tumor. 2. Degenerative disk disease. 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 POST-OP DIAGNOSES: 1. Intradural tumor. 2. Degenerative disk disease. 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 OPERATIVE PROCEDURE: The patient underwent posterior cervical decompression and arthrodesis at C2 to T2 with arthrodesis of C2 to T2 with C2 plate and screws; C3, C4, C5, C6 lateral mass screws; T1 and T2 pedicle screws with C2 to T1 decompressive laminectomies and foraminotomies with partial osteotomy of C6- 7 and C7-T1 facets with intradural exploration and removal of intradural tumor. Use of locally harvested bone graft and DBX. Use of intraoperative navigation and intraoperative neurosurgical monitoring. 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 Because of MRI findings and failure to improve with conservative treatment, the patient was offered the option of surgical intervention. After expectation, limitations, and possible complications of the procedure have been explained to the patient and her daughters with complications including, but not limited to bleeding, infection, risk of injury to adjacent structures, coma , paralysis, , need for additional procedures, anesthesia risks, stroke, blindness, cancer, instability, hardware failure, adjacent level disease, pseudoarthrosis, need for additional procedures in the future, spinal fluid leak , paralysis, pseudomeningocele formation, inability to remove the whole tumor, recurrence of the tumor, need for prolonged ICU stay, need for tracheostomy or gastrostomy, need for prolonged hospitalization or prolonged rehabilitation, temporary or permanent neurological deficits, persistence of pain, neuropathic pain, loss of function of limb, scar formation, wound infection, anesthesia risks, the patient and her daughters were agreeable to proceed with surgery and informed consent was obtained. The patient and her daughters understood that her condition may not improve and, in fact, may get worse after surgery and that she may need to have additional procedures in the future. They understood that the operative plan may be modified according to the intraoperative findings and conditions and that the case may be abandoned or done in more than 1 stage. They also understood the potential need for prolonged ICU stay or prolonged rehabilitation. DESCRIPTION OF PROCEDURE: The patient was brought to the operating room and was placed under general anesthesia by anesthesia team. She was carefully positioned prone on the Clarence table and all bony prominences were meticulously padded. Hair was removed with surgical clippers and the skin was prepped and draped in the standard fashion. After appropriate surgical pause and patient identification, a midline incision over the spinous process of C2- C3 approximately was marked on the skin, was infiltrated with local anesthetic, and a # 10 surgical blade was used to incise the skin. The incision was carried down to the dorsal fascia with the use of Bovie cautery. Self- retaining retractor was introduced into the field. The dorsal fascia was divided on both sides of the midline with the use of Bovie cautery and the paraspinal muscles were elevated with Bovie cautery and periosteal elevators. A self-retaining retractor was introduced further into the field and intraoperative fluoroscopic imaging confirmed appropriate surgical level. The laminae and the spinous processes as well as the lateral masses of C3 to C6 as well as the lamina and pars of C2, as well as the lamina and spinous processes of T1-T2 were carefully exposed. Foraminotomies were performed at several levels, and a complete foraminotomy with almost complete facetectomy on the left of C6-7 was performed in expectation of exploration of the intraforaminal component of the intradural lesion. Also, osteotomy and almost complete facetectomies of the right C6-7 and bilateral C7-T1 were performed with high- speed drill. Then, attention was brought to insert lateral mass screws at C3, C4, C5, and C6 bilaterally; 3.5 x 12 mm screws were inserted after creating the automatic pilot mechanic hole with high-speed drill and handheld drill. Solid bone mclain were confirmed in all trajectories. The left C6 screw was not inserted at this point in expectation for the need for exploration for the intraforaminal part of the tumor. Then, attention was brought to insert the clamp for the navigator stand at the spinous process of T2. O-arm imaging was then performed and the patient's data was sent to the navigation platform. Under stereotactic navigation, the pedicles of T1 and T2 bilaterally were cannulated and 4.0 x 24 for the T1 level and 4.0 x 24 for the T2 level screws were inserted bilaterally into the pedicles. Then, attention was brought to insert the C2 pedicle screws. Then, high-speed drill was used to create a automatic pilot mechanic hole in the cortex in the lateral edge of the lateral mass while navigation was used to select the optimal trajectory. The pedicles were cannulated with handheld drill and 3.5 x 22 mm screws were inserted bilaterally. Then, the titanium vikki was cut and contoured in shape and was used to connect the screw head on the right side while a second vikki was prepared, but not inserted in expectation for intradural exploration. Second O-arm imaging was obtained which confirmed excellent placement of all hardware. Then, attention was brought to perform an extensive laminectomy from C2 to T1. Leksell rongeur, high-speed drill, and Kerrison punches were used. The laminae were removed en bloc and were used as bone graft material after being morcellized for use following this part of the procedure. After confirmation of meticulous hemostasis, the microscope was brought into the field and a #15 blade was used to incise the dura at the midline. The durotomy was centered over the C6- 7 level. The dura was then tacked with 4-0 Nurolon sutures and the intradural tumor was readily identified as expected from preoperative MRI imaging. This was draped by the nerve rootlets of the C7 nerve root and also, well compressed in the superior part of the C8 nerve root. Nerve root stimulation was performed at the dorsal nerve rootlets and response from the motor branches corresponding was identified. The plane between the nerve rootlets as well as the spinal cord was decompressed towards the right side. It was then developed with all the measurements, and bipolar coagulation was used to coagulate and shrink the surface of the tumor while the attachments of the dura were carefully coagulated with bipolar cautery. Attention was brought to preserve all the nerve rootlets, both dorsal and ventral, in those nerve roots. Sonopet was used to debulk the tumor and after meticulous dissection, it was possible to remove the tumor in its entirety with a portion into the thecal sac. After meticulous inspection, the dural part of the tumor was found to be completely dissected. The attachment of the dura was then carefully coagulated while a small part of the tumor was found to extend beyond the exit of the nerve rootlets into the nerve roots. Then, a transverse incision on the dura was performed with Metzenbaum scissors and micro scissors, exposing the nerve rootlets inside the nerve root as well as the remaining tumor. Proton instruments were used to dissect free the tumor from the nerve rootlets, respecting the integrity of the nerve rootlets and the intracanalicular portion of the tumor was removed in its entirety. Tumor tissue was sent as specimen. After copious irrigation and meticulous hemostasis , attention was brought to perform a dural closure. A 4-0 Nurolon suture was used to approximate the dural edges, both on the durotomy with the nerve root sleeve as well as the midline durotomy. Watertight closure was achieved and had been confirmed with Valsalva maneuver. The durotomy was then reinforced with Tisseel and also another layer of DuraGen was placed and covered with a second layer of Tisseel. Again, Valsalva maneuver confirmed watertight closure. Then , attention was brought to get the C6 lateral mass screw and the second titanium vikki was also secured in place. The patient's head was slightly repositioned into extension and screw head caps were used to secure the vikki onto the screw heads. Mild compression was performed to achieve the desired lordosis. Then, attention was brought to perform the arthrodesis. A high- speed drill was used to decorticate the exposed bony elements while the facet head was delivered as part of the procedure. The mixture of locally harvested bone graft and DBM putty was used and we placed a cannula to perform the arthrodesis. The self-retaining retractors were removed from the field, and after confirmation of meticulous hemostasis and copious irrigation and meticulous inspection, the wound was closed by layers over a Minor drain, which was tunneled through a separate stab wound incision. Interrupted 0 Vicryl suture was used to approximate the dorsal fascia while the skin was approximated with interrupted 2-0 Vicryl sutures. The skin incision was then approximated with interrupted 0 Prolene suture. The patient's incision was then covered with Xeroform and sterile sponges. At the end of the procedure, all counts were reported to be correct. The patient remained hemodynamically stable throughout the case. Intraoperative electrophysiological monitoring was stable throughout the case. The patient was then turned supine, was extubated, and was transferred to recovery in excellent condition. [id number]/[facility] #: [id number] RADHA
[2018-09-15] MEDS ORDERED: Hydrochlorothiazide TAB* 25 MG PO SCH (09:00)
[2018-09-15] MEDS: Docusate CAP* 100 MG PO PRN (09:13)
[2018-09-15] MEDS: Senna TAB PO PRN (09:13)
[2018-09-15] MEDS: Cyclobenzaprine TAB* 10 MG PO PRN ×3 (09:13→23:43)
[2018-09-15] MEDS: Metoprolol Succinate XL TAB* 25 MG PO SCH (21:10)
[2018-09-15] MEDS: Atorvastatin* 10 MG TAB PO SCH (21:10)
[2018-09-15] MEDS: Mirtazapine TAB* 15 MG PO SCH (23:43)
[2018-09-16] MEDS: Dexamethasone TAB* 4 MG PO SCH ×4 (04:01→21:11)
[2018-09-16] MEDS: oxyCODONE/Acetamin 5/325 MG* TAB PO PRN ×4 (08:33→21:10)
--- NOTE | 2018-09-16 12:23 | PN ---
Progress Note - Progress Note Date of Service: 09/16/18 SOAP: Subjective: []Patient transferred to regular floor yesterday. No events ON. Preop neck pain resolved. Ambulates, voids. Flatus present. Patient noticed decreased hearing this am. Reported that hearing was at baseline last night. Patient has some degree of chronic hearing difficulties Objective: []VSS, Afebrile Tolerates MJ collar well. Minor drain output noted. Drain was removed. Catheter appears to be intact. No complications. Patient tolerated procedure well. AAOx3, ARLYN, CN II-XII grossly intact. Hearing intact to finger rub bilaterally. Motor 5/5 all extremities Sensory grossly intact to light touch Cerumen present gianna ear canals. Assessment: []78 yof POD#2 C2-T2 PCDF with removal of intradural tumor Plan: []Monitor VS, Neurochecks Encourage ambulation Maintain MJ collar HOD 60-70 ' PT ENT consult. Dr Mandujano's office contacted. Taper steroids DC planning, possible tomorrow Appreciate IM care. Arin Denise MD
[2018-09-16] MEDS: ALPRAZolam TAB* 0.25 MG PO PRN (12:34)
[2018-09-16] MEDS ORDERED: Pseudoephedrine TAB* 30 MG PO ONE (15:51)
--- NOTE | 2018-09-16 16:08 | PN ---
Subjective Date of Service: 09/16/18 Interval History: Patient seen and examined. Per patient report and discussion with Dr. Denise , patient was having some hearing dysfunction today and was very anxious when laying flat. She denies any numbness or paresthesias, no fevers or chills, surgical pain is well controlled. She states her anxiety is stemming from her long felt pain prior to this procedure and the loss of her . She became very tearful when she talked about the of her . Objective Active Medications: Alprazolam (Xanax Tab*) 0.25 mg PO TID PRN PRN Reason: ANXIETY Last Admin: 09/16/18 12:34 Dose: 0.25 mg Atorvastatin Calcium (Lipitor*) 10 mg PO BEDTIME [facility] Last Admin: 09/15/18 21:10 Dose: 10 mg Carbamide Peroxide (Debrox 6.5% Otic*) 2 drop BOTH EARS BID [facility] Stop: 09/17/18 21:01 Cyclobenzaprine HCl (Flexeril Tab*) 10 mg PO TID PRN PRN Reason: muscle spasms Last Admin: 09/15/18 23:43 Dose: 10 mg Dexamethasone (Decadron Tab*) 2 mg PO Q6H [facility] Stop: 09/16/18 22:01 Last Admin: 09/16/18 09:56 Dose: 2 mg Dexamethasone (Decadron Tab*) 2 mg PO Q12HR [facility] Docusate Sodium (Colace Cap*) 100 mg PO BID PRN PRN Reason: CONSTIPATION Last Admin: 09/15/18 09:13 Dose: 100 mg Hydralazine HCl (Apresoline Iv*) 10 mg IV SLOW PU Q8H PRN PRN Reason: SBP>160 Metoprolol Succinate (Toprol Xl Tab*) 25 mg PO BEDTIME [facility] Last Admin: 09/15/18 21:10 Dose: 25 mg Mirtazapine (Remeron Tab*) 15 mg PO BEDTIME [facility] Last Admin: 09/15/18 23:43 Dose: 15 mg Morphine Sulfate (Morphine 4 Mg/Ml Vial (1 Ml)) 2 mg IV Q2H PRN PRN Reason: PAIN Last Admin: 09/15/18 07:41 Dose: 2 mg Ondansetron HCl (Zofran Inj*) 4 mg IV Q6H PRN PRN Reason: NAUSEA/VOMITING Last Admin: 09/14/18 16:00 Dose: 4 mg Oxycodone/Acetaminophen (Percocet 5/325 Tab*) 1 tab PO Q4H PRN PRN Reason: PAIN Last Admin: 09/16/18 12:33 Dose: 1 tab Senna (Senokot Tab*) 1 tab PO BEDTIME PRN PRN Reason: CONSTIPATION Last Admin: 09/15/18 09:13 Dose: 1 tab Vital Signs - 8 hr 09/16/18 09/16/18 09/16/18 08:33 09:01 10:25 Temperature Pulse Rate Respiratory 16 18 18 Rate Blood Pressure (mmHg) O2 Sat by Pulse Oximetry 09/16/18 09/16/18 09/16/18 11:25 12:33 12:34 Temperature 98.2 F Pulse Rate 95 Respiratory 20 18 18 Rate Blood Pressure 135/58 (mmHg) O2 Sat by Pulse 95 Oximetry 09/16/18 09/16/18 14:29 14:30 Temperature Pulse Rate Respiratory 18 16 Rate Blood Pressure (mmHg) O2 Sat by Pulse Oximetry Oxygen Devices in Use Now: None Appearance: alert, NAD Eyes: No Scleral Icterus, PERRLA Ears/Nose/Mouth/Throat: NL Teeth, Lips, Gums, Clear Oropharnyx, Mucous Membranes Moist, - - bilateral ear cerumen, membranes intact, no erythema noted , chin abrasion dressing CDI Neck: NL Appearance and Movements; NL JVP, Trachea Midline Respiratory: Symmetrical Chest Expansion and Respiratory Effort, Clear to Auscultation Cardiovascular: NL Sounds; No Murmurs; No JVD, RRR, No Edema Abdominal: NL Sounds; No Tenderness; No Distention Extremities: No Edema Neurological: Alert and Oriented x 3, NL Muscle Strength and Tone Nutrition: Taking PO's Microbiology and Other Data: Microbiology 09/15/18 06:40 Nasal Screen MRSA (PCR) - Final Nasal Mrsa Not Detected Assess/Plan/Problems-Billing Assessment: This is a 78 year old female with history of HTN that presented for elective C2- T2 decompression and fusion and excision of intradrual tumor. - Patient Problems (1) S/P cervical spinal fusion Code(s): Z98.1 - ARTHRODESIS STATUS SNOMED Code(s): 3125212499896 Comment: - POD2 C2-T2 decompression and fusion with arthrodesis and excision of intradural tumor with Dr. Denise - POC as per neurosurgery - Continue decadron taper Q6h - Pain control, bowel regimen - DVT prophy with SCDs, encourage ambulation - Cspine precautions with [place] J collar at all times - PT/OT - Labs stable (2) Anxiety Code(s): F41.9 - ANXIETY DISORDER, UNSPECIFIED SNOMED Code(s): 13469947 Comment: - Takes remeron nightly - Added low dose xanax TID PRN, this helped significantly today, would recommend continuing low dose PRN at discharge for short term during recovery from her procedure, patient is amenable (3) Hearing difficulty of both ears Code(s): H91.93 - UNSPECIFIED HEARING LOSS, BILATERAL SNOMED Code(s): 384598625 Comment: - Discussed at length with patient and with Dr. Denise - Patient reports she has had some mild hearing loss over the past year and issues with cerumen build up in the past - Patient had prolonged procedure (10 hours) in prone position and significant edema requiring steroids which may be impacting fluid and congestion in her ears - Tympanic membranes appear normal upon exam, would recommned debrox BID and will trial single dose of decongestant, as she has no pain and no obvious drainage - Would also recommend positioning of cabazon J collar to alleviate any pressure below the ears (4) HTN (hypertension) Code(s): I10 - ESSENTIAL (PRIMARY) HYPERTENSION SNOMED Code(s): 05135681 Comment: - Metoprolol per home dose, hydralazine PRN, BP stable (5) HLD (hyperlipidemia) Code(s): E78.5 - HYPERLIPIDEMIA, UNSPECIFIED SNOMED Code(s): 43227037 Comment: - Resume statin at discharge (6) DVT prophylaxis Code(s): XNM1034 - SNOMED Code(s): 334427876 Comment: - SCDs (7) Full code status Code(s): Z78.9 - OTHER SPECIFIED HEALTH STATUS SNOMED Code(s): 368713377 Status and Disposition: Inpatient, dispo to home when medically stable.
[2018-09-16] MEDS: Carbamide Peroxide 6.5% OTIC* 15 ML BTL BOTH EARS SCH ×2 (16:32→21:21)
[2018-09-16] MEDS ORDERED: Carbamide Peroxide 6.5% OTIC* 15 ML BTL BOTH EARS SCH (21:00)
[2018-09-16] MEDS: Docusate CAP* 100 MG PO PRN (21:09)
[2018-09-16] MEDS: Atorvastatin* 10 MG TAB PO SCH (21:09)
[2018-09-16] MEDS: Metoprolol Succinate XL TAB* 25 MG PO SCH (21:09)
[2018-09-16] MEDS: Senna TAB PO PRN (21:10)
[2018-09-16] MEDS: Mirtazapine TAB* 15 MG PO SCH (21:10)
[2018-09-17] MEDS: oxyCODONE/Acetamin 5/325 MG* TAB PO PRN ×3 (02:58→13:26)
[2018-09-17] MEDS ORDERED: Scopolamine PATCH Remove* 1 NOTE MISC PATCH OFF ONE (05:56)
[2018-09-17] MEDS: Dexamethasone TAB* 1 MG PO SCH ×2 (06:04→09:48)
[2018-09-17] MEDS: Carbamide Peroxide 6.5% OTIC* 15 ML BTL BOTH EARS SCH (09:51)
[2018-09-17] MEDS: ALPRAZolam TAB* 0.25 MG PO PRN (09:57)
--- NOTE | 2018-09-17 13:05 | PN ---
Progress Note - Progress Note Date of Service: 09/17/18 SOAP: Subjective: [] No events ON. No neck pain. Ambulates, Voids. Flatus present. Improving hearing this am. Patient wants to go home. Objective: []VSS, Afebrile Tolerates MJ collar well. Wound s,c,d AAOx3, ARLYN, CN II-XII grossly intact. Hearing intact to finger rub bilaterally. Motor 5/5 all extremities Sensory grossly intact to light touch Assessment: []78 yof POD#3 C2-T2 PCDF with removal of intradural tumor Plan: [] ]Monitor VS, Neurochecks Encourage ambulation Maintain MJ collar HOD 60-70 ' PT ENT consulted yesterday. Dr Mandujano recommended follow up in the office on Tuesday. Taper steroids DC today if ok with IM Full instructions were given to the patient and her daughter. Appreciate IM care. Arin Denise MD
[2018-09-17 13:08] VITALS: BP 161/65
[2018-09-17] MEDS: Cyclobenzaprine TAB* 10 MG PO PRN (14:16)
--- NOTE | 2018-09-21 07:21 | DCNOTE ---
Date of Service 09/14/18 Date of Discharge: 09/17/18 Disposition at time of discharge: good Place of Discharge: Home Admission diagnosis: 1) Cervical Spondylosis 2) Intradura extramedullary cervical spine Tumor Diagnosis on Discharge: 1) Cervical Spondylosis 2) Intradura extramedullary cervical spine Tumor Hospital Discourse: 78 y/o female that presented with chronic axial neck pain that radiated to her shoulder. 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 After unsuccessfully completing conservative therapy, patient was offered surgery. She underwent a posterior decompression from C2 - T2, with tumor resection C6/C7. She tolerated the surgery without any issues and discharge to ICU with head of bed elevated overnight as percaution. She did well during observation period in the ICU and was transferred to the Short Stay Unit. She continued to walk with PT/OT, at time discharge was tolerating liquids and solids by mouth. Patient was ambulating and voiding without issue. She remained stable through out the course of hospital stay and was recommended for discharge on 09/17/18. Patient discharged home her disposition status was good.
== END 2018-09-17 14:30 | disposition home or self-care (01) | DRG 982 ==
LOC: AA 05:48 → ICU 19:49 → SSU 09-15 08:25
PROVIDERS: ADMIT Neurological Surgery; ATTEND Neurological Surgery
PROC: 01N10ZZ Release Cervical Nerve, Open Approach (ICD-10-PCS; 2018-09-14)
PROC: 01N80ZZ Release Thoracic Nerve, Open Approach (ICD-10-PCS; 2018-09-14)
PROC: 00B10ZZ Excision of Cerebral Meninges, Open Approach (ICD-10-PCS; 2018-09-14)
PROC: 0RG407J Fusion of Cervicothoracic Vertebral Joint with Autologous Tissue Substitute, Posterior Approach, Anterior Column, Open Approach (ICD-10-PCS; principal; 2018-09-14 07:30)
DX: D49.7 Neoplasm of unspecified behavior of endocrine glands and other parts of nervous system (principal); M50.01 Cervical disc disorder with myelopathy, high cervical region; M48.02 Spinal stenosis, cervical region; M40.202 Unspecified kyphosis, cervical region; J44.9 Chronic obstructive pulmonary disease, unspecified; G62.9 Polyneuropathy, unspecified; I10 Essential (primary) hypertension; E78.5 Hyperlipidemia, unspecified; F41.9 Anxiety disorder, unspecified; F32.9 Major depressive disorder, single episode, unspecified; H91.93 Unspecified hearing loss, bilateral; Z96.643 Presence of artificial hip joint, bilateral; Z96.611 Presence of right artificial shoulder joint; Z79.891 Long term (current) use of opiate analgesic; Z79.899 Other long term (current) drug therapy; Z88.8 Allergy status to other drugs, medicaments and biological substances; Z91.040 Latex allergy status; Z82.49 Family history of ischemic heart disease and other diseases of the circulatory system; Z82.5 Family history of asthma and other chronic lower respiratory diseases; Z81.2 Family history of tobacco abuse and dependence; Z80.0 Family history of malignant neoplasm of digestive organs
CPT/HCPCS: 72040; 76000; 87641; 88304; 88341; 88342; A9270-GY; G8978-GP-CL; G8979-GP-CI; G8987-GO-CL; G8988-GO-CI; J0330; J0360; J0690; J1100; J2001; J2250; J2270; J2405; J2704; J3010; J3490; J8540

== ENCOUNTER → 2018-09-28 16:48 | Emergency (ER) | payer MEDICARE ==
[~2018-09-28 16:48] MED LIST changes: -Buffered Lidocaine 1% SYRIN* 1 ML/SYRINGE INTRADERM ONE; +Ketorolac INJ* 30 MG/ML 1 ML VIAL IM ONE; +Ketorolac INJ* 30 MG/ML 1 ML VIAL IV PUSH ONE; +Methocarbamol* 100 MG/ML 10 ML VIAL IV ONE; +Methocarbamol* 100 MG/ML 10 ML VIAL ONE; -Ondansetron TAB* 4 MG PO ONE
--- OUTSIDE RECORDS SUMMARY | 2018-09-28 17:25 | XMS REPORT | Continuity of Care Document ---
:1940 External Reference #:[id number] Author Name Reji Betsy Care Team Providers Name Role Phone Lance Blake M.D. Primary Care Physician Unavailable Payers Date Identification Numbers Payment Provider Subscriber Policy Number: [id number] [employer] Medicare Emile Del Castillo PayID: [id number] [address] [place] [address] Expires: 2018 Policy Number: [id number] [facility] Medicare Solutions Emile Del Castillo Group Number: [id number] [address] PayID: [id number] [place] [address] Expires: 2016 Policy Number: [id number] Medicare Emile Del Castillo PayID: [id number] [address] [place] [address] Effective: 2011 Policy Number: [id number] [employer] Winston Del Castillo Expires: 2016 PayID: [id number] [address] [address] [place] [address] Expires: 2016 Group Name: 1 1 Medicaid Emile Del Castillo PayID: [id number] [address] [place] [address] Family History Date Family Member(s) Observation Comments General Gastric Cancer mother Social History Type Date Description Comments Sex Unknown Lives With Alone ETOH Use Denies alcohol use Tobacco Use Start: Unknown Patient has never smoked Smoking Status Reviewed: 09/22/18 Patient has never smoked Exercise Type/Frequency Does not exercise Allergies, Adverse Reactions, Alerts Active Allergies Reaction Severity Comments Date Hydrocodone vomiting 12/26/2013 Latex swollen face 12/26/2013 Citalopram 07/10/2018 Medications Active Medications SIG Qnty Indications Ordering Date Provider Valium take one 21tabs Z48.89 Vassilios 09/21/2018 5mg Tablets tablet by MD Howie mouth every 8 hours as needed for muscle spasms. Celebrex 1 po qday Unknown 200mg Simvastatin 1 po qday Unknown 20mg Stool Softener 1 po qday Unknown Metoprolol Succinate ER 1 by mouth Unknown 25mg every day Tablets ER 24HR Mirtazapine 1 tab by mouth Unknown 15mg Tablets at bedtime Gabapentin 1 by mouth at Unknown 300mg Capsules bed time. Oxycodone-Acetaminophen 1 tabs by Unknown 5-325mg mouth every Tablets 4-6 hours as needed for pain Hydrochlorothiazide 1 by mouth Unknown 12.5mg every day Capsules History Medications Tylenol 650mg po q day Unknown - Unknown Hydrochlorothiazide 1 po qday Unknown - 08/15/2018 2.5mg Tramadol HCL 50mg 1 po qday Unknown - 08/2016 Oxycodone HCL 5/325 prn Unknown - 2016 mg Medications Administered in Office Medication SIG Qnty Indications Ordering Provider Date Depomedrol 80MG Rob Alonso M.D. 12/26/2013 Injection Vital Signs Date Vital Result Comment 09/22/2018 10:45am Height 61.5 inches 5'1.50" Weight 164.00 lb BP Systolic Sitting 122 mmHg BP Diastolic Sitting 78 mmHg Body Temperature 98.4 F Pain Level 9 BMI (Body Mass Index) 30.5 kg/m2 09/07/2018 1:35pm Height 61.5 inches 5'1.50" Heart Rate 78 /min BP Systolic 148 mmHg BP Diastolic 90 mmHg Respiratory Rate 18 /min Body Temperature 98.1 F Pain Level 1 08/16/2018 2:50pm Height 61.5 inches 5'1.50" Weight 164.00 lb Heart Rate 86 /min BP Systolic Sitting 162 mmHg BP Diastolic Sitting 74 mmHg Respiratory Rate 14 /min Pain Level 8 BMI (Body Mass Index) 30.5 kg/m2 08/09/2018 3:00pm Height 61.5 inches 5'1.50" Weight 165.00 lb Heart Rate 84 /min BP Systolic 140 mmHg BP Diastolic 70 mmHg BMI (Body Mass Index) 30.7 kg/m2 07/25/2018 3:20pm Height 61.5 inches 5'1.50" Weight 166.50 lb Heart Rate 96 /min BP Systolic Sitting 122 mmHg BP Diastolic Sitting 64 mmHg BMI (Body Mass Index) 30.9 kg/m2 07/10/2018 4:16pm Height 61.5 inches 5'1.50" Weight 165.00 lb Heart Rate 102 /min BP Systolic Sitting 132 mmHg large adult cuff left arm BP Diastolic Sitting 70 mmHg large adult cuff left arm Respiratory Rate 20 /min Pain Level 10 O2 % BldC Oximetry 97 % BMI (Body Mass Index) 30.7 kg/m2 07/19/2016 10:26am Height 61.5 inches 5'1.50" Weight 167.00 lb Heart Rate 80 /min BP Systolic 124 mmHg BP Diastolic 80 mmHg Respiratory Rate 16 /min Body Temperature 96.7 F BMI (Body Mass Index) 31.0 kg/m2 05/19/2016 10:41am Height 61.5 inches 5'1.50" Weight 171.00 lb Body Temperature 96.2 F Pain Level 0 BMI (Body Mass Index) 31.8 kg/m2 02/27/2016 9:33am Height 61.5 inches 5'1.50" Weight 171.00 lb Heart Rate 82 /min BP Systolic 132 mmHg BP Diastolic 78 mmHg Pain Level 5 BMI (Body Mass Index) 31.8 kg/m2 03/11/2014 10:58am Height 64 inches 5'4" Weight 162.00 lb Body Temperature 98.2 F BMI (Body Mass Index) 27.8 kg/m2 02/25/2014 11:34am Height 64.5 inches 5'4.50" Weight 184.00 lb Heart Rate 77 /min BP Systolic 176 mmHg BP Diastolic 84 mmHg BMI (Body Mass Index) 31.1 kg/m2 02/25/2014 11:04am Height 64 inches 5'4" Weight 168.00 lb Pain Level 10 BMI (Body Mass Index) 28.8 kg/m2 01/30/2014 8:54am Height 64 inches 5'4" Weight 168.00 lb Pain Level 9 BMI (Body Mass Index) 28.8 kg/m2 12/26/2013 1:21pm Height 64 inches 5'4" Weight 183.00 lb Heart Rate 98 /min BP Systolic 166 mmHg BP Diastolic 90 mmHg BMI (Body Mass Index) 31.4 kg/m2 Results Test Date Facility Test Result H/L Range Note Inr/Protime 09/07/2018 [facility] Inr 0.99 N 0.82-1.09 1 [place] [address] [phone] Laboratory test 09/07/2018 [facility] Partial 30.9 seconds N 26.0-36.3 finding [facility] [place] [address] PTT [phone] Urinalysis 09/07/2018 [facility] Urine [place] [address] [phone] Urine Appearance Clear Urine Specific Taylor 1.004 Low 1.010-1.030 Urine pH 5.0 N 5-9 Urine Urobilinogen Negative Negative Urine Ketones Negative Negative Urine Protein Negative Negative Urine Leukocytes Negative Negative Urine Blood Negative Negative Urine Nitrite Negative Negative Urine Bilirubin Negative Negative Urine Glucose Negative Negative CBC No Diff 09/07/2018 [facility] White Blood 7.0 10^3/uL N 3.5-10.8 [place] [address] [phone] Red Blood Count 4.92 10^6/uL High 3.70-4.87 Hemoglobin 14.9 g/dL N 12.0-16.0 Hematocrit 45 % N 35-47 Mean Corpuscular Volume 91 fL N 80-97 Mean Corpuscular Hemoglobin 30 pg N 27-31 Mean Corpuscular HGB Conc 34 g/dL N 31-36 Red Cell Distribution Width 13 % N 10.5-15 Platelet Count 232 10^3/uL N 150-450 Mean Platelet Volume 8.3 fL N 7.4-10.4 Basic Metabolic Panel 09/07/2018 [facility] Sodium 139 mmol/L N 135-145 [place] [address] [phone] Potassium 3.9 mmol/L N 3.5-5.0 Chloride 105 mmol/L N 101-111 Co2 Carbon Dioxide 26 mmol/L N 22-32 Anion Gap 8 mmol/L N 2-11 Glucose 121 mg/dL High 70-100 Blood Urea Nitrogen 15 mg/dL N 6-24 Creatinine 0.76 mg/dL N 0.51-0.95 BUN/Creatinine Ratio 19.7 N 8-20 Calcium 10.4 mg/dL High 8.6-10.3 Egfr Non- 74.0 >60 Egfr 89.5 >60 2 Type & Screen 09/07/2018 [facility] Patient Blood Type A Positive [address] [place] [address] [phone] Antibody Screen NEGATIVE Creatinine 07/13/2018 [facility] Creatinine 0.77 mg/dL N 0.51- 0.[address] [place] [address] [phone] Egfr Non- 72.9 >60 Egfr 88.2 >60 3 Surgical Pathology 02/28/2014 [facility] S RUN DATE: 03/04/ < SEE [address] NOTE> [place] [address] [phone] 1 Standard intensity warfarin therapeutic range: 2.0-3.0 High intensity warfarin therapeutic range: 2.5-3.5 2 Because ethnic data is not always readily available, this report includes an eGFR for both -Americans and non- Americans. The National Kidney Disease Education Program (NKDEP) does not endorse the use of the MDRD equation for patients that are not between the ages of 18 and 70, are , have extremes of body size, muscle mass, or nutritional status, or are non- or non-. According to the National Kidney Foundation, irrespective of diagnosis, the stage of the disease is based on the level of kidney function: Stage Description GFR(mL/min/1.73 m(2)) 1 Kidney damage with normal or decreased GFR 90 2 Kidney damage with mild decrease in GFR 60-89 3 Moderate decrease in GFR 30-59 4 Severe decrease in GFR 15-29 5 Kidney failure <15 (or dialysis) 3 Because ethnic data is not always readily available, this report includes an eGFR for both -Americans and non- Americans. The National Kidney Disease Education Program (NKDEP) does not endorse the use of the MDRD equation for patients that are not between the ages of 18 and 70, are , have extremes of body size, muscle mass, or nutritional status, or are non- or non-. According to the National Kidney Foundation, irrespective of diagnosis, the stage of the disease is based on the level of kidney function: Stage Description GFR(mL/min/1.73 m(2)) 1 Kidney damage with normal or decreased GFR 90 2 Kidney damage with mild decrease in GFR 60-89 3 Moderate decrease in GFR 30-59 4 Severe decrease in GFR 15-29 5 Kidney failure <15 (or dialysis) 4 RUN DATE: 03/04/14 [facility] LAB LIVE PAGE 1 RUN TIME: [address] [place] [id number] Specimen Inquiry Name: EMILE DEL CASTILLO : [address]: Rob Alonso MD Acct: [id number] Unit: [id number] AGE: 73 Location: OR Re02/28/14 SEX: F Status: REG [facility] SPEC: [id number] AMI: 02/28/14- [facility] DR: Rob Alonso MD REQ: [id number] RECD: 02/28/14 STATUS: SOUT _ ORDERED: LEVEL III FINAL DIAGNOSIS Knee, right, arthroscopic shavings: Synovial tissue with polarizable rhomboid crystal deposition most compatible with calcium pyrophosphate. CLINICAL HISTORY Please identify crystals in synovium PRE-OPERATIVE DIAGNOSIS Dislocation knee, tear medial cartilage. GROSS DESCRIPTION The specimen is received in formalin labeled Emile Del Castillo, Right Knee Shavings, and consists of a 4.6 x 2.6 x 0.9 cm. aggregate of yellow and white tissue fragments. Licensed Chemical Spray Technician sections, one cassette. Signed (signature on file) Schuyler Staton MD 1519 END OF REPORT * ML=Testing performed at Main Lab DEPARTMENT OF PATHOLOGY, [address] [place] [address] Schuyler Staton M.D. Director [facility] # [id number] Procedures Date Code Description Status 08/29/2018 07714 Carpal Tunnel Release Completed 08/29/2018 29816 Carpal Tunnel Release Completed 08/29/2018 98630 Neuroplasty &/Or Transposition; Ulnar Nerve AT Elbow Completed 08/29/2018 28896 Neuroplasty &/Or Transposition; Ulnar Nerve AT Elbow Completed 08/01/2018 29118 Nerve Conduction 03-04 Studies Completed 08/01/2018 09997 Needle Electromyography Complete, Five Or More Muscles Completed Studied 04/27/2016 76718 Closed [place] Post Hip Arthroplasty Req Reg Or Gen Anesthesia Completed 04/27/2016 40252 Closed [place] Post Hip Arthroplasty Req Reg Or Gen Anesthesia Completed 04/26/2016 19174 EKG, Interpretation Only Completed 04/25/2016 28576 Closed [place] Post Hip Arthroplasty Req Reg Or Gen Anesthesia Completed 02/28/2014 39758 Arthroscopy,Knee,Meniscectomy Medial Or Lateral Completed 02/28/2014 18011 Arthroscopy,Knee,Meniscectomy Medial Or Lateral Completed 02/28/2014 68161 Arthroscopy,Knee, Synovectomy Plica Or Shelf Resect Completed 12/26/2013 59275 Xray Knee 3 Views Completed 12/26/2013 07166 Rad Exam; Knee, Ap&L Completed 12/26/2013 58499 Inject/Drain Joint/Bursa Major W/O US Completed Encounters Type Date Location Provider Dx Diagnosis Office Visit 08/16/2018 Orthopedic Carrie Rabago, G56.01 Carpal tunnel 2:00p Services Of Kishor Billingsley syndrome, right upper limb G56.21 Lesion of ulnar nerve, right upper limb Office 08/09/2018 Neurosurgery Vassilios M47.22 Other spondylosis Visit 2:30p Services Of Randy Denise MD with radiculopathy, cervical region 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, cervical region R93.89 Abnormal findings on dx imaging of oth body structures Office 07/25/2018 Neurosurgery Vassilios M47.22 Other spondylosis Visit 2:30p Services Of Randy Denise MD with radiculopathy, cervical region M48.02 Spinal stenosis, cervical region R93.89 Abnormal findings on dx imaging of oth body structures Office 07/10/2018 Neurosurgery Vassilios M47.22 Other spondylosis Visit 4:00p Services Of Randy Denise MD with radiculopathy, cervical region M48.02 Spinal stenosis, cervical region R93.89 Abnormal findings on dx imaging of oth body structures Office Visit 04/28/2016 [facility] S73.005A Unspecified 2:51p Assoc,pc Preston, [employer] OPERATOR dislocation of Hospitalists left hip, initial encounter E78.5 Hyperlipidemia, unspecified I10 Essential (primary) hypertension Office 04/27/2016 [facility] E78.5 Hyperlipidemia, Visit 2:50p Assoc,pc Preston, [employer] OPERATOR unspecified Hospitalists Office 04/26/2016 [facility] S73.005A Unspecified Visit 2:50p Assoc,pc Preston, [employer] OPERATOR dislocation of left Hospitalists hip, initial encounter E78.5 Hyperlipidemia, unspecified Office Visit 04/25/2016 [facility] Max S73.005A Unspecified 2:49p Assoc,pc Derek, N.P. dislocation of Hospitalists left hip, initial encounter E78.5 Hyperlipidemia, unspecified I10 Essential (primary) hypertension Office Visit 04/25/2016 2:50p Orthopedic Skye Sue, T84.021A Dislocation of Services Of internal left hip C.M.A. prosthesis, init encntr Z96.642 Presence of left artificial hip joint Office Visit 02/27/2016 Orthopedic Rob Alonso, M54.42 Lumbago with 9:30a Services Of Jose Cruz sciatica, left side C.M.A. Office Visit 02/25/2014 Orthopedic Rob Alonso, 836.0 Dislocation Knee 11:00a Services Of Jose Cruz Tear Of Medial C.M.A. Cartilage Or Meniscus Curren Office Visit 01/30/2014 Orthopedic Carmen 836.0 Dislocation Knee 9:15a Services Of SCOTT Salgado Tear Of Medial C.M.A. Cartilage Or Meniscus Curr Office Visit 12/26/2013 Orthopedic Rob Alonso, 715.15 Osteoarthrosis 1:00p Services Of Jose Cruz Localized Prim C.M.A. Pelvic & Thigh 844.9 Sprains & Strains Knee & Leg Unspec Plan of Treatment Future Appointment(s):12/18/2018 2:30 pm - Sury Denise MD at [facility]10/23/2018 3:30 pm - Sury Denise MD at [facility]09/22/2018 - Maty Ham, PAM48.02 Spinal stenosis , cervical region
--- NOTE | 2018-09-28 19:26 | ED ---
Back Pain - HPI Summary HPI Summary: A 78 y/o female presents to [facility] with a chief complaint of back pain for the past week. The patient had spinal surgery two weeks ago. She felt OK during the first week but felt worse with movement this week. She describes her pain as a spasm, like a charley horse, and claims that her pain has been intermittent , worsening with movement. Her pain does not radiate to her legs. At triage the patient rated her pain as a 6/10 in severity. She denies any numbness or weakness in her hands. She has taken Diazepam 5mg every 8 hours, Cyclobenzaprine 10mg, Alprazolam 0.25 mg and Methocarbamol 750 mg. She also takes Percocet around every 4 hours to no relief, but she has been on Percocet for 3 years for arthritis. The patient sleeps with a custom fit c-collar, noting that she only takes it off to shower. She has also tried using heating pads, massage and bio freeze to no relief. - History of Current Complaint Chief Complaint: Aure Stated Complaint: MUSCLE SPASMS IN BACK, SURGERY 2 WEEKS AGO PER PT Time Seen by Provider: 09/28/18 19:20 Hx Obtained From: Patient Onset/Duration: Sudden Onset, Lasting Days, Still Present Onset/Duration: Started Days Ago, Still Present Timing: Intermittent, Lasting Hours Severity Initially: Moderate Severity Currently: Moderate Pain Intensity: 6 Pain Scale Used: 0-10 Numeric Character: Spasmodic Aggravating Symptom(s): Movement Alleviating Symptom(s): Nothing Associated Signs And Symptoms: Negative: Fever, Weakness, Numbness - Allergies/Home Medications Allergies/Adverse Reactions: Allergies Allergy/AdvReac Type Severity Reaction Status Date / Time citalopram Allergy FLU LIKE Verified 09/14/18 06:49 SYMPTOMS hydrocodone Allergy Vomiting Verified 09/14/18 06:49 latex Allergy Swelling Verified 09/14/18 06:49 PMH/Surg Hx/FS Hx/Imm Hx Endocrine/Hematology History: Denies: Hx Bone Marrow Disease, Hx Diabetes, Hx Sickle Cell Disease, Hx Thyroid Disease, Hx Anemia Cardiovascular History: Reports: Hx Hypertension - ON MEDS Denies: Hx Angina, Hx Cardiomegaly, Hx Congestive Heart Failure, Hx Coronary Artery Disease, Hx Pacemaker/ICD, Hx Rheumatic Fever, Other Cardiovascular Problems/Disorders Respiratory History: Denies: Hx Asthma, Hx Pulmonary Edema, Hx Pulmonary Embolism, Hx Sleep Apnea , Other Respiratory Problems/Disorders GI History: Denies: Hx Cirrhosis, Hx Crohn's Disease, Hx Gastroesophageal Reflux Disease , Hx Hiatal Hernia, Hx Irritable Bowel, Hx Jaundice, Hx Ulcer, Other GI Disorders History: Denies: Hx Kidney Infection, Hx Kidney Stones, Hx Renal Disease, Other Problems/Disorders Musculoskeletal History: Reports: Hx Arthritis - OSTEOARTHRITIS Denies: Hx Tendonitis, Other Musculoskeletal History Sensory History: Reports: Hx Cataracts, Hx Contacts or Glasses - READING Denies: Hx Eye Injury, Hx Eye Prosthesis, Hx Glaucoma, Hx Legally Blind, Hx Macular Degeneration, Hx Vision Problem, Hx Deafness, Hx Hearing Aid, Hx Hearing Problem, Other Sensory Impairments Opthamlomology History: Reports: Hx Cataracts, Hx Contacts or Glasses - READING Denies: Hx Eye Injury, Hx Eye Prosthesis, Hx Glaucoma, Hx Legally Blind, Hx Macular Degeneration, Hx Vision Problem, Other Sensory Impairments Neurological History: Denies: Other Neuro Impairments/Disorders Psychiatric History: Reports: Hx Depression - ON MEDICATION FOR Denies: Hx Panic Disorder - Surgical History Surgery Procedure, Year, and Place: ROTATOR CUFF RIGHT, 1999, [facility] [place]. RIGHT HIP REPLACEMENT, 2000, [facility] [place]. LEFT HIP REPLACEMENT 2004, [facility] [place] AND WAS REVISED. HYSTERECTOMY, , [facility] [place]. CATARACTS BILAT. 2011, [facility] [place] Hx Anesthesia Reactions: No Infectious Disease History: No Infectious Disease History: Denies: Hx Clostridium Difficile, Hx Hepatitis, Hx Human Immunodeficiency Virus (HIV), Hx of Known/Suspected MRSA, Hx Shingles, Hx Tuberculosis, History Other Infectious Disease, Traveled Outside the [place] in Last 30 Days - Family History Known Family History: Negative: Other - Negative anasthesia reaction - Social History Alcohol Use: Rare Alcohol Amount: 1-2 ON OCCASION Substance Use Type: Reports: None Smoking Status (MU): Never Smoked Tobacco Have You Smoked in the Last Year: No Review of Systems Negative: Fever Positive: Myalgia - back pain, Other - negative: pain in legs Negative: Weakness, Numbness All Other Systems Reviewed And Are Negative: Yes Physical Exam - Summary Physical Exam Summary: VITAL SIGNS: Reviewed. GENERAL: Patient is a well-developed and nourished FEMALE who is lying comfortable in the stretcher. Patient is not in any acute respiratory distress. HEAD AND FACE: No signs of trauma. No ecchymosis, hematomas or skull depressions. No sinus tenderness. EYES: PERRLA, EOMI x 2, No injected conjunctiva, no nystagmus. EARS: Hearing grossly intact. Ear canals and tympanic membranes are within normal limits. MOUTH: Oropharynx within normal limits. NECK: Supple, trachea is midline, no adenopathy, no JVD, no carotid bruit, no c- spine tenderness, neck with full ROM CHEST: Symmetric, no tenderness at palpation LUNGS: Clear to auscultation bilaterally. No wheezing or crackles. CVS: Regular rate and rhythm, S1 and S2 present, no murmurs or gallops appreciated. ABDOMEN: Soft, non-tender. No signs of distention. No rebound no guarding, and no masses palpated. Bowel sounds are normal. EXTREMITIES: FROM in all major joints, no edema, no cyanosis or clubbing. C- collar in place, dressing on back of neck and upper T-spine NEURO: Alert and oriented x 3. No acute neurological deficits. Speech is normal and follows commands. SKIN: Dry and warm Triage Information Reviewed: Yes Vital Signs On Initial Exam: Initial Vitals Temp Pulse Resp BP Pulse Ox 98.7 F 98 20 153/76 99 09/28/18 17:14 09/28/18 17:14 09/28/18 17:14 09/28/18 17:14 09/28/18 17:14 Vital Signs Reviewed: Yes Diagnostics - Vital Signs Vital Signs Temp Pulse Resp BP Pulse Ox 09/28/18 18:39 98 26 135/68 98 09/28/18 18:37 24 09/28/18 17:14 98.7 F 98 20 153/76 99 - Laboratory Lab Statement: Any lab studies that have been ordered have been reviewed, and results considered in the medical decision making process. Re-Evaluation - Re-Evaluation First Eval Re-Evaluation Time: 21:43 Change: Improved Comment: Pt is feeling better Back Pain Course/Dx - Course Course Of Treatment: A 78 y/o female presents to [facility] with a chief complaint of back pain for the past week. The patient had spinal surgery two weeks ago. The physical exam revealed C-collar in place, dressing on back of neck and upper T-spine, and that the patient is neurologically intact. Case discussed with Dr. Denise, who recommended Toradol and Robaxin. In the ED course the patient was given Toradol and Robaxin IV. The patient will be discharged with a prescription for Baclofen and has an appointment with Dr. Denise tomorrow. The patient is agreeable with this plan. - Diagnoses Provider Diagnoses: Muscle spasm - Provider Notifications Discussed Care Of Patient With: Sury Denise Time Discussed With Above Provider: 19:39 Instructed by Provider To: Other - Recommended IV Robaxin and Toradol. Discharge - Sign-Out/Discharge Documenting (check all that apply): Patient Departure - DC Patient Received Moderate/Deep Sedation with Procedure: No - Discharge Plan Condition: Stable Disposition: HOME Prescriptions: Baclofen TAB* [Lioresal TAB*] 5 mg PO TID #60 tab Patient Education Materials: Muscle Spasm (ED) Referrals: Tyshawn Sosa NP [Primary Care Provider] - (2-3 days) Sury Denise MD [Medical Doctor] - 1 Day Additional Instructions: PLEASE RETURN TO THE ED IMMEDIATELY FOR WORSENING OR CONCERNING SYMPTOMS. - Billing Disposition and Condition Condition: STABLE Disposition: Home - Attestation Statements Document Initiated by Scribe: Yes Documenting Scribe: Jono Small Provider For Whom Lawrenceibe is Documenting (Include Credential): Denys Dawson MD Scribe Attestation: IJono, scribed for Denys Dawson MD on 09/29/18 at 0542. Scribe Documentation Reviewed: Yes Provider Attestation: The documentation as recorded by the Jono collado accurately reflects the service I personally performed and the decisions made by me, Denys Dawson MD Status of Scribe Document: Viewed
[2018-09-28 21:51] VITALS: BP 133/72
== END | disposition home or self-care (01) ==
LOC: ED 16:48
DX: M62.838 Other muscle spasm (principal); I10 Essential (primary) hypertension; Z79.899 Other long term (current) drug therapy; Z88.5 Allergy status to narcotic agent; Z88.8 Allergy status to other drugs, medicaments and biological substances; Z91.040 Latex allergy status
CPT/HCPCS: 96374; 96375; 99285; J1885; J2800